=== PATIENT | female | born 1940 | race Hispanic/Latino ===

== ENCOUNTER 2017-08-12 17:49 | Inpatient (IN) | payer MEDICARE, OTHER ==
[2017-08-12] MEDS ORDERED: Albuterol-Ipratrop 3 mg / 0.5 (3 ml) UD IH STA ×2 (18:07→19:58)
--- NOTE | 2017-08-12 18:07 | ED PDOC ---
Arrival/HPI <Dieudonne Delvalle - Last Filed: 08/12/17 20:21> - General Historian: Patient <Ronald Pope - Last Filed: 08/14/17 10:03> - General Chief Complaint: Cough, Cold, Congestion Time Seen by Provider: 08/12/17 18:00 - History of Present Illness Narrative History of Present Illness (Text): 08/12/17 18:01 77 y/o female, pmh including htn and copd, nkda, c/o coughing/chest congestion and copd exacerbation x 2 days. Pt. stated that she has been having chest congestion with productive coughing for the past 2 days, stated that this is causing her copd exacerbation, no fever or chills, no night sweat, no rash, no numbness or tingling, no palpitation, no chest pain or shortness of breath, no other medical or psychological complaints. (Ronald Pope) Past Medical History - Provider Review Nursing Documentation Reviewed: Yes - Infectious Disease Hx of Infectious Diseases: None - Cardiac Hx Cardiac Disorders: Yes Hx Hypertension: Yes - Pulmonary Hx Respiratory Disorders: Yes Hx Chronic Obstructive Pulmonary Disease (COPD): Yes - Neurological Hx Neurological Disorder: No - HEENT Hx HEENT Disorder: No - Renal Hx Renal Disorder: No - Endocrine/Metabolic Hx Endocrine Disorders: No - Hematological/Oncological Hx Blood Disorders: Yes Hx Cancer: Yes (hx of breast cancer) - Integumentary Hx Dermatological Disorder: No - Musculoskeletal/Rheumatological Hx Musculoskeletal Disorders: No - Gastrointestinal Hx Gastrointestinal Disorders: No - Genitourinary/Gynecological Hx Genitourinary Disorders: No - Psychiatric Hx Psychophysiologic Disorder: No Hx Substance Use: No - Surgical History Other/Comment: R masectomy - Anesthesia Hx Anesthesia: Yes Hx Anesthesia Reactions: No <Ronald Pope - Last Filed: 08/14/17 10:03> Family/Social History - Physician Review Nursing Documentation Reviewed: Yes Family/Social History: Unknown Family HX Smoking Status: Heavy Smoker > 10 Cigarettes Daily Hx Alcohol Use: No Hx Substance Use: No <Ronald Pope - Last Filed: 08/14/17 10:03> Allergies/Home Meds <Dieudonne Delvalle - Last Filed: 08/12/17 20:21> <Ronald Pope - Last Filed: 08/14/17 10:03> Allergies/Adverse Reactions: Allergies No Known Allergies Allergy (Verified 08/12/17 17:55) Home Medications: Home Meds Medication Instructions Recorded Confirmed Bisoprolol [Zebeta] 10 mg PO DAILY 08/12/17 08/12/17 Budesonide/Formoterol Fumarate 1 puff IH BID 08/12/17 08/12/17 [Symbicort 160-4.5 Mcg Inhaler] Losartan [Cozaar] 50 mg PO DAILY 08/12/17 08/12/17 Tiotropium Soddy Daisy Inhaler 1 puff IH DAILY 08/12/17 08/12/17 [Spiriva Inhalation Handihaler Device] Review of Systems - Review of Systems Constitutional: absent: Fatigue, Fevers Eyes: absent: Vision Changes ENT: absent: Hearing Changes Respiratory: Cough, Sputum, Wheezing. absent: SOB Cardiovascular: absent: Chest Pain Gastrointestinal: absent: Abdominal Pain, Nausea, Vomiting Musculoskeletal: absent: Arthralgias, Back Pain Skin: absent: Rash, Pruritis Neurological: absent: Headache, Dizziness Psychiatric: absent: Anxiety, Depression <Ronald Pope Q - Last Filed: 08/14/17 10:03> Physical Exam Vital Signs Reviewed: Yes Temperature: Afebrile Blood Pressure: Normal Pulse: Tachycardic Respiratory Rate: Normal Appearance: Positive for: Well-Appearing, Non-Toxic, Comfortable Pain Distress: None Mental Status: Positive for: Alert and Oriented X 3 - Systems Exam Head: Present: Atraumatic, Normocephalic Pupils: Present: PERRL Extroacular Muscles: Present: EOMI Conjunctiva: Present: Normal Ears: Present: NORMAL TM, Normal Canal. No: Erythema Mouth: Present: Moist Mucous Membranes Neck: Present: Normal Range of Motion Respiratory/Chest: Present: Clear to Auscultation, Good Air Exchange. No: Respiratory Distress, Accessory Muscle Use, Wheezes, Decreased Breath Sounds, Rales, Retracting, Rhonchi, Tachypneic, Tender to Palpation Cardiovascular: Present: Regular Rate and Rhythm, Normal S1, S2. No: Murmurs Abdomen: Present: Normal Bowel Sounds. No: Tenderness, Distention, Peritoneal Signs Back: Present: Normal Inspection Upper Extremity: Present: Normal Inspection. No: Cyanosis, Edema Lower Extremity: Present: Normal Inspection. No: Edema Neurological: Present: GCS=15, Speech Normal, Motor Func Grossly Intact, Gait Normal, Memory Normal Skin: Present: Warm, Dry, Normal Color. No: Rashes Psychiatric: Present: Alert, Oriented x 3, Normal Insight, Normal Concentration <Ronald Pope - Last Filed: 08/14/17 10:03> Vital Signs Temp Pulse Resp BP Pulse Ox 08/12/17 21:06 150/62 08/12/17 20:42 103 H 18 150/62 93 L 08/12/17 17:59 99.6 F 106 H 17 127/77 94 L Medical Decision Making <Dieudonne Delvalle - Last Filed: 08/12/17 20:21> - RAD Interpretation Hat Block Bench Hand: Radiologist <Ronald Pope - Last Filed: 08/14/17 10:03> ED Course and Treatment: 08/12/17 18:15 -labs -chest xray -ekg -IVF/duoneb/solumedrol -observe and reassess 08/12/17 20:14 -Chest xray show +pneumonia, blood cultures and IV rocephine/azithromycin ordered. -EKG show Sinus tachycardia @ 101 BPM, no ST elevation or depression, no T wave inversion. -Labs show no acute findings except BNP 1460 with no previous comparison, troponin 0.06 (will need trending aspirin 325mg po ordered), CK 1000 (no fall or trauma, 500cc bolu ordered), BNP 1460 (no pedal edema but since IVF 500cc given will give lasix 20). -VBG lactic acid show 1.5 -Pt. will need admission for COPD/pneumonia and possible early onset of CHF??, clinically also concerning can this be possible developing underlying NSTEMI causing elevated CK and BNP -I discussed with the patient and she agreed to be admitted. Tylenol ordered for her low grade temp as well. -Case discussed with DR. Delvalle and he agreed that this patient needs admission. -I spoke to the patient's pmd Dr. Fountain, discussed about the case/labs/ radiology result and treatment, he agreed on the admission to tele and he will trend the troponin and follow up on it. -I discussed with the patient and the grand daughter on the bed side of my differential including pneumonia vs. CHF vs. NSTEMI vs. dehydration vs. 08/12/17 20:18 -Dr. Adelia will put in the admission order to the telemetry and discussed with the case with him as well. (Ronald Pope) - Lab Interpretations Microbiology Results: Microbiology Results 08/12/17 19:00 Blood-Venous Blood Culture - Preliminary NO GROWTH AFTER 24 HOURS 08/12/17 18:45 Blood-Venous Blood Culture - Preliminary NO GROWTH AFTER 24 HOURS Lab Results: 08/12/17 18:45 08/12/17 18:45 Lab Results 08/12/17 18:45: Serum Osmolality 270 L 08/12/17 18:45: pO2 125 H, VBG pH 7.42, VBG pCO2 38.0 L, VBG HCO3 24.6, VBG Total CO2 25.8, VBG O2 Sat (Calc) 99.5 H, VBG Base Excess 0.3, VBG Potassium 3.5 L, Sodium 129.0 L, Chloride 94.0 L, Glucose 121 H, Lactate 1.5, FiO2 21.0, Venous Blood Potassium 3.5 L 08/12/17 18:45: WBC 6.6, RBC 4.94, Hgb 13.4, Hct 40.8, MCV 82.6, MCH 27.1, MCHC 32.8, RDW 14.2, Plt Count 112 L, MPV 10.7, Gran % 86.4 H, Lymph % (Auto) 7.7 L, [place] % (Auto) 5.9, Eos % (Auto) 0.0 L, Baso % (Auto) 0.0, Gran # 5.74, Lymph # 0.5 L, [place] # 0.4, Eos # 0.0, Baso # 0.00 08/12/17 18:45: Sodium 130 L, Chloride 94 L, Potassium 3.5 L, Carbon Dioxide 24 , Anion Gap 16, BUN 17, Creatinine 0.8, Est GFR ( Amer) > 60, Est GFR ( Non-Af Amer) > 60, Random Glucose 123 H, Calcium 8.8, Magnesium 1.6 L, Total Bilirubin 0.7, AST 61 H, ALT 36, Alkaline Phosphatase 80, Lactate Dehydrogenase 580, Total Creatine Kinase 1064 H, CK-MB (CK-2) 1.8, CK-MB (CK-2) % Cancelled, Troponin I 0.06, NT-Pro-B Natriuret Pep 1460 H, Total Protein 7.3, Albumin 4.2, Globulin 3.2, Albumin/Globulin Ratio 1.3 08/12/17 18:00: Influenza Typ A,B (EIA) Negative for flu a/b - RAD Interpretation Radiology Orders: 08/12/17 18:11 CHEST PORTABLE [RAD] Stat 08/12/17 18:11 CHEST PORTABLE [RAD] Stat bibasiliar infiltrate noted. (Ronald Pope) - Medication Orders Current Medication Orders: Acetaminophen (Tylenol 325mg Tab) 650 mg PO Q4 PRN PRN Reason: Fever >100.4 F Albuterol/Ipratropium (Duoneb 3 Mg/0.5 Mg (3 Ml) Ud) 3 ml IH Q6 [facility] Last Admin: 08/14/17 08:32 Dose: 3 ml Aspirin (Ecotrin) 81 mg PO DAILY [facility] Last Admin: 08/13/17 10:30 Dose: 81 mg Budesonide (Pulmicort Respules) 0.5 mg IH [id number] [facility] Carvedilol (Coreg) 3.125 mg PO BID [facility] Last Admin: 08/13/17 18:36 Dose: 3.125 mg [facility] Pulse and Blood Pressure Document 08/13/17 18:36 MANIL (Rec: 08/13/17 18:36 MANIL [id number]) Pulse Pulse Rate (60-90) 74 Blood Pressure Blood Pressure (100/60-150/90) 135/72 Ceftriaxone Sodium (Rocephin 1 Gram Ivpb) 1 gm in 100 mls @ 100 mls/hr IVPB DAILY [facility] PRN Reason: Protocol Last Admin: 08/13/17 10:31 Dose: 100 mls/hr eMAR Start Stop Document 08/13/17 10:31 MANIL (Rec: 08/13/17 10:31 MANIL [id number]) Intravenous Solution Start Date 08/13/17 Start Time 10:31 End Date 08/13/17 End time 11:31 Total Infusion Time 60 Azithromycin (Zithromax 500mg In Ns) 500 mg in 250 mls @ 167 mls/hr IVPB DAILY [facility] PRN Reason: Protocol Last Admin: 08/13/17 11:00 Dose: 167 mls/hr eMAR Start Stop Document 08/13/17 11:00 MANIL (Rec: 08/13/17 17:26 MANIL [id number] ) Intravenous Solution Start Date 08/13/17 Start Time 11:00 End Date 08/13/17 End time 12:30 Total Infusion Time 90 Sodium Chloride (Sodium Chloride 0.9%) 1,000 mls @ 75 mls/hr IV .[id number] [facility] Losartan Potassium (Cozaar) 50 mg PO DAILY [facility] Last Admin: 08/13/17 10:30 Dose: 50 mg MAR Pulse and Blood Pressure Document 08/13/17 10:30 MANIL (Rec: 08/13/17 10:31 MANIL [id number]) Pulse Pulse Rate (60-90) 73 Blood Pressure Blood Pressure (100/60-150/90) 122/65 Methylprednisolone (Solu-Medrol) 40 mg IVP Q12 [facility] Last Admin: 08/13/17 22:12 Dose: 40 mg IVP Administration Document 08/13/17 22:12 KTR (Rec: 08/13/17 22:12 KTR [id number]) Charges for Administration # of IVP Administrations 1 Tiotropium Soddy Daisy (Spiriva) 18 mcg IH DAILY [facility] Last Admin: 08/13/17 10:32 Dose: 18 mcg Discontinued Medications Acetaminophen (Tylenol 325mg Tab) 650 mg PO STAT STA Stop: 08/12/17 20:14 Last Admin: 08/12/17 21:06 Dose: 650 mg MAR Pain/Vitals Document 08/12/17 21:06 EQ (Rec: 08/12/17 21:06 EQ [facility] [id number]) Pain Reassessment Is This A Pain ReAssessment? No Sleep Is patient sleeping during reassessment? No Presence of Pain Presence of Pain Yes Albuterol/Ipratropium (Duoneb 3 Mg/0.5 Mg (3 Ml) Ud) 3 ml IH STAT STA Stop: 08/12/17 18:08 Last Admin: 08/12/17 19:09 Dose: 3 ml Albuterol/Ipratropium (Duoneb 3 Mg/0.5 Mg (3 Ml) Ud) 3 ml IH STAT STA Stop: 08/12/17 19:59 Last Admin: 08/12/17 21:06 Dose: 3 ml Aspirin (Aspirin) 325 mg PO STAT STA Stop: 08/12/17 20:12 Last Admin: 08/12/17 21:07 Dose: 325 mg Clonidine HCl (Catapres) 0.1 mg PO STAT STA Stop: 08/14/17 00:16 Last Admin: 08/14/17 00:40 Dose: 0.1 mg MAR Pulse and Blood Pressure Document 08/14/17 00:40 KTR (Rec: 08/14/17 00:40 KTR [id number]) Pulse Pulse Rate (60-90) 76 Blood Pressure Blood Pressure (100/60-150/90) 176/80 Furosemide (Lasix) 20 mg IVP STAT STA Stop: 08/12/17 20:03 Last Admin: 08/12/17 21:06 Dose: 20 mg MAR Blood Pressure Document 08/12/17 21:06 EQ (Rec: 08/12/17 21:06 EQ [facility] [id number]) Blood Pressure Blood Pressure (100/60-150/90) 150/62 IVP Administration Document 08/12/17 21:06 EQ (Rec: 08/12/17 21:06 EQ [facility] [id number]) Charges for Administration # of IVP Administrations 1 Ceftriaxone Sodium (Rocephin 1 Gram Ivpb) 1 gm in 100 mls @ 200 mls/hr IVPB STAT STA PRN Reason: Protocol Stop: 08/12/17 19:03 Last Admin: 08/12/17 19:40 Dose: 200 mls/hr eMAR Start Stop Document 08/12/17 19:40 EQ (Rec: 08/12/17 19:41 EQ [facility] [id number]) Intravenous Solution Start Date 08/12/17 Start Time 19:41 Azithromycin (Zithromax 500mg In Ns) 500 mg in 250 mls @ 167 mls/hr IVPB STAT STA PRN Reason: Protocol Stop: 08/12/17 20:03 Last Admin: 08/12/17 20:32 Dose: 167 mls/hr eMAR Start Stop Document 08/12/17 20:32 EQ (Rec: 08/12/17 20:32 EQ [facility] [id number]) Intravenous Solution Start Date 08/12/17 Start Time 20:32 Magnesium Sulfate/Dextrose (Magnesium Sulfate 1 Gm/100 Ml D5w) 1 gm in 100 mls @ 100 mls/hr IVPB ONCE ONE Stop: 08/12/17 21:00 Last Admin: 08/12/17 21:06 Dose: 100 mls/hr eMAR Start Stop Document 08/12/17 21:06 EQ (Rec: 08/12/17 21:06 EQ [facility] [id number]) Intravenous Solution Start Date 08/12/17 Start Time 21:06 Sodium Chloride (Sodium Chloride 0.9%) 500 mls @ 999 mls/hr IV .Q31M STA Stop: 08/12/17 20:31 Last Admin: 08/12/17 21:06 Dose: 999 mls/hr eMAR Start Stop Document 08/12/17 21:06 EQ (Rec: 08/12/17 21:06 EQ [facility] [id number]) Intravenous Solution Start Date 08/12/17 Start Time 21:06 Sodium Chloride (Sodium Chloride 0.9%) 1,000 mls @ 100 mls/hr IV .Q10H [facility] Last Admin: 08/13/17 08:09 Dose: Methylprednisolone (Solu-Medrol) 125 mg IVP STAT STA Stop: 08/12/17 18:08 Last Admin: 08/12/17 19:09 Dose: 125 mg IVP Administration Document 08/12/17 19:09 EQ (Rec: 08/12/17 19:09 EQ [facility] [id number]) Charges for Administration # of IVP Administrations 1 Potassium Chloride (K-Dur 20 Meq Er Tab) 40 meq PO ONCE ONE Stop: 08/13/17 08:31 Last Admin: 08/13/17 09:30 Dose: 40 meq Potassium Chloride (K-Dur 20 Meq Er Tab) 20 meq PO ONCE ONE Stop: 08/13/17 16:57 Last Admin: 08/13/17 17:25 Dose: 20 meq - PA / ADVISORY SERVICES ASSOCIATE / Resident Statement VIRGILIO has reviewed & agrees with the documentation as recorded. VIRGILIO has examined the patient and agrees with the treatment plan. <Dieudonne Delvalle - Last Filed: 08/12/17 20:21> - PA / ADVISORY SERVICES ASSOCIATE / Resident Statement VIRGILIO has reviewed & agrees with the documentation as recorded. VIRGILIO has examined the patient and agrees with the treatment plan. <Ronald Pope - Last Filed: 08/14/17 10:03> Disposition/Present on Arrival <Dieudonne Delvalle - Last Filed: 08/12/17 20:21> - Present on Arrival Any Indicators Present on Arrival: No History of DVT/PE: No History of Uncontrolled Diabetes: No Urinary Catheter: No History of Decub. Ulcer: No History Surgical Site Infection Following: None - Disposition Have Diagnosis and Disposition been Completed?: Yes Disposition Time: 19:59 Patient Plan: Admission, Telemetry <Ronald Pope - Last Filed: 08/14/17 10:03> - Disposition Diagnosis: Pneumonia, COPD (chronic obstructive pulmonary disease), Elevated brain natriuretic peptide (BNP) level, Rhabdomyolysis Disposition: HOSPITALIZED Patient Problems: Current Active Problems Problem Status Onset Pneumonia Acute COPD (chronic obstructive pulmonary disease) Acute Elevated brain natriuretic peptide (BNP) level Acute Rhabdomyolysis Acute Condition: STABLE
[2017-08-12] MEDS ORDERED: cefTRIAXone 1 gm 1 GM/100 ML BAG IVPB STA (18:34)
[2017-08-12] MEDS ORDERED: Azithromycin 500MG/NS 250ml 500 MG/250 ML BAG IVPB STA (18:34)
[2017-08-12 19:19] LABS: GRAN # 5.74 (1.4-6.5); GRAN % 86.4 % (50.0-68.0); HEMOGLOBIN 13.4 g/dL (12.0-16.0); LYMPH # 0.5 (1.2-3.4); LYMPH % 7.7 % (22.0-35.0); MEAN CELL VOLUME 82.6 fl (80.0-105.0); MEAN CORPUSCULAR HEMOGLOBIN 27.1 pg (25.0-35.0); MEAN CORPUSCULAR HGB CONC 32.8 g/dl (31.0-37.0); MEAN PLATELET VOLUME 10.7 fl (7.0-11.0); MONO # 0.4 (0.1-0.6); MONO % 5.9 % (1.0-6.0); RBC 4.94 10^6/uL (3.5-6.1); RED CELL DISTRIBUTION WIDTH 14.2 % (11.5-14.5); WHITE BLOOD COUNT 6.6 10^3/ul (4.5-11.0)
[2017-08-12 19:23] LABS: VENOUS BLOOD GAS BASE EXCESS 0.3 mmol/L (0.0-2.0); VENOUS BLOOD GAS PO2 125 mm/Hg (30-55); VENOUS BLOOD PH 7.42 (7.32-7.43)
[2017-08-12 19:39] LABS: B-TYPE NATRIURETIC PEPTIDE 1460 pg/mL (0-450); TROPONIN I 0.06 ng/mL
[2017-08-12 19:53] LABS: ALB/GLOB RATIO 1.3 (1.1-1.8); ALBUMIN 4.2 g/dL (3.0-4.8); ALT/SGPT 36 U/L (7-56); AST/SGOT 61 U/L (14-36); BLOOD UREA NITROGEN 17 mg/dL (7-21); CALCIUM 8.8 mg/dL (8.4-10.5); GFR AFRICAN-AMERICAN > 60; GFR NON-AFRICAN AMERICAN > 60; MAGNESIUM 1.6 mg/dL (1.7-2.2)
[2017-08-12] MEDS ORDERED: Sodium Chloride 0.9% 500 ML IV STA (20:01)
[2017-08-12] MEDS ORDERED: Magnesium Sulfate 1 gm in D5W 1 GM/100 ML BAG IVPB ONE (20:01)
[2017-08-12 20:15] LABS: CK-MB 1.8 ng/mL (0.0-3.6)
[2017-08-13 02:26] VITALS: BMI 24.1
[2017-08-13 08:06] LABS: BASO # 0.01 K/mm3 (0.0-2.0); BASO % 0.2 % (0.0-3.0); GRAN # 4.67 (1.4-6.5); HEMOGLOBIN 13.1 g/dL (12.0-16.0); LYMPH # 0.4 (1.2-3.4); LYMPH % 7.8 % (22.0-35.0); MEAN CELL VOLUME 82.8 fl (80.0-105.0); MEAN CORPUSCULAR HEMOGLOBIN 26.8 pg (25.0-35.0); MEAN CORPUSCULAR HGB CONC 32.4 g/dl (31.0-37.0); MEAN PLATELET VOLUME 10.8 fl (7.0-11.0); MONO # 0.2 (0.1-0.6); RBC 4.88 10^6/uL (3.5-6.1); RED CELL DISTRIBUTION WIDTH 14.6 % (11.5-14.5); WHITE BLOOD COUNT 5.3 10^3/ul (4.5-11.0)
[2017-08-13] MEDS: Sodium Chloride 0.9% 1,000 ML IV SCH ×2 (08:08→08:09)
[2017-08-13 08:13] LABS: ALB/GLOB RATIO 1.2 (1.1-1.8); ALBUMIN 3.7 g/dL (3.0-4.8); ALT/SGPT 35 U/L (7-56); AST/SGOT 62 U/L (14-36); BLOOD UREA NITROGEN 22 mg/dL (7-21); CALCIUM 8.1 mg/dL (8.4-10.5); GFR AFRICAN-AMERICAN > 60; GFR NON-AFRICAN AMERICAN > 60
[2017-08-13] MEDS: Albuterol-Ipratrop 3 mg / 0.5 (3 ml) UD IH SCH ×3 (08:17→20:57)
--- NOTE | 2017-08-13 08:20 | RAD ---
HISTORY: medical clearance, cough COMPARISON: 12/17/2016 FINDINGS: LUNGS: Minimal bibasilar infiltrates are seen. The left-sided infiltrate was seen on the previous exam and may represent scarring PLEURA: No significant pleural effusion identified, no pneumothorax apparent. CARDIOVASCULAR: Normal. OSSEOUS STRUCTURES: No significant abnormalities. VISUALIZED UPPER ABDOMEN: Normal. OTHER FINDINGS: None. IMPRESSION: Minimal bibasilar infiltrates are seen. The left-sided infiltrate was seen on the previous exam and may represent scarring
[2017-08-13 08:23] LABS: FREE T4 1.26 ng/dL (0.78-2.19)
[2017-08-13 08:27] LABS: CK MB% 0.5 % (2.5-3.0)
[2017-08-13] MEDS ORDERED: Potassium Chloride 20 mEq ER Tab PO ONE ×2 (08:30→16:56)
[2017-08-13 08:39] LABS: TROPONIN I 0.13 ng/mL
--- NOTE | 2017-08-13 08:46 | CP.PCM.HP ---
History of Present Illness - History of Present Illness History of Present Illness: 77 year old female with history of hypertension, chronic obstructive pulmonary disease and breast cancer with history of right mastectomy presented last night to the Emergency Room with low grade fever, tachycardia and shortness of breath. Patient says she has been feeling weak and tired for the last 2 days. She has also been coughing for the last 2 days. She denies nausea, vomiting chest pain or diarrhea. Present on Admission - Present on Admission Any Indicators Present on Admission: No History of DVT/PE: No History of Uncontrolled Diabetes: No Urinary Catheter: No Decubitus Ulcer Present: No Review of Systems - Constitutional Constitutional: As Per HPI - Cardiovascular Cardiovascular: Dyspnea. absent: Chest Pain, Leg Edema - Respiratory Respiratory: As Per HPI - Gastrointestinal Gastrointestinal: absent: Abdominal Pain, Nausea, Vomiting Past Patient History - Infectious Disease Hx of Infectious Diseases: None - Past Social History Smoking Status: Never Smoked - CARDIAC Hx Cardiac Disorders: Yes Hx Hypertension: Yes - PULMONARY Hx Respiratory Disorders: Yes Hx Chronic Obstructive Pulmonary Disease (COPD): Yes - NEUROLOGICAL Hx Neurological Disorder: No - HEENT Hx HEENT Problems: No - RENAL Hx Chronic Kidney Disease: No - ENDOCRINE/METABOLIC Hx Endocrine Disorders: No - HEMATOLOGICAL/ONCOLOGICAL Hx Blood Disorders: Yes Hx Cancer: Yes (hx of breast cancer) - INTEGUMENTARY Hx Dermatological Problems: No - MUSCULOSKELETAL/RHEUMATOLOGICAL Hx Musculoskeletal Disorders: No Hx Falls: No - GASTROINTESTINAL Hx Gastrointestinal Disorders: No - GENITOURINARY/GYNECOLOGICAL Hx Genitourinary Disorders: No - PSYCHIATRIC Hx Psychophysiologic Disorder: No Hx Substance Use: No - SURGICAL HISTORY Hx Surgeries: Yes Other/Comment: R masectomy - ANESTHESIA Hx Anesthesia: Yes Hx Anesthesia Reactions: No Meds Allergies/Adverse Reactions: Allergies Allergy/AdvReac Type Severity Reaction Status Date / Time No Known Allergies Allergy Verified 08/12/17 17:55 Physical Exam - Head Exam Head Exam: ATRAUMATIC, NORMOCEPHALIC - Respiratory Exam Respiratory Exam: Rhonchi - Cardiovascular Exam Cardiovascular Exam: +S1, +S2 - GI/Abdominal Exam GI & Abdominal Exam: Normal Bowel Sounds, Soft. absent: Tenderness - Extremities Exam Extremities exam: Negative for: pedal edema - Neurological Exam Neurological exam: Alert, CN II-XII Intact, Oriented x3 Results - Vital Signs Recent Vital Signs: Last Vital Signs Temp 98.7 F 08/13/17 01:33 Pulse 78 01/14/18 02:00 Resp 20 08/13/17 01:33 BP 123/75 08/13/17 01:33 Pulse Ox 96 08/13/17 00:00 - Labs Result Diagrams: 08/14/17 06:30 08/15/17 06:30 Labs: Laboratory Results - last 24 hr 08/13/17 08/13/17 08/13/17 07:30 07:30 07:30 WBC 5.3 RBC 4.88 Hgb 13.1 Hct 40.4 MCV 82.8 MCH 26.8 MCHC 32.4 RDW 14.6 H Plt Count 94 L MPV 10.8 Gran % 89.0 H Lymph % (Auto) 7.8 L [place] % (Auto) 3.0 Eos % (Auto) 0.0 L Baso % (Auto) 0.2 Gran # 4.67 Lymph # 0.4 L [place] # 0.2 Eos # 0.0 Baso # 0.01 Sodium 137 Potassium 3.2 L Chloride 102 Carbon Dioxide 24 Anion Gap 15 BUN 22 H Creatinine 0.7 Est GFR ( Amer) > 60 Est GFR (Non-Af Amer) > 60 Random Glucose 157 H Calcium 8.1 L Magnesium 2.0 Total Bilirubin 0.5 AST 62 H ALT 35 Alkaline Phosphatase 67 Lactate Dehydrogenase 601 Total Creatine Kinase 1061 H CK-MB (CK-2) 5.0 H CK-MB (CK-2) % 0.5 L Troponin I 0.14 H* D Total Protein 6.8 Albumin 3.7 Globulin 3.1 Albumin/Globulin Ratio 1.2 Free T4 1.26 Assessment & Plan - Assessment and Plan (Free Text) Assessment: Pneumonia Hyponatremia Hypokalemia Hypomagnesemia Elevated CPK - rhabdomyolysis Elevated troponin r/o NSTEMI COPD exacerbation HTN History of breast cancer Plan: Patient is on IV Rocephin and Zithromax for pneumonia. Will consult Dr. Putnam for infectious disease. Blood, urine and sputum cultures pending. Repeat CPK continues to be elevated and repeat troponin is trending upward. Will consult Dr. Cruz, tank house operator helper to rule out NSTEMI. continue IV fluids for rhabdomyolysis continue ASA, and Losartan for blood pressure. Bisoprolol is not on formulary. Will start Coreg instead. continue respiratory treatments via nebulizer, IV solumedrol and oxygen for COPD. repeat sodium is now normalized with IV fluids. Repeat magnesium is also normal. Potassium supplementation is ordered for low potassium.
[2017-08-13] MEDS: cefTRIAXone 1 gm 1 GM/100 ML BAG IVPB SCH (10:31)
[2017-08-13] MEDS: MethylPREDNISolone 40 mg Vial IVP SCH ×2 (10:32→22:12)
[2017-08-13] MEDS: Tiotropium 18 mcg Cap For Inhalation IH SCH (10:32)
[2017-08-13] MEDS: Azithromycin 500MG/NS 250ml 500 MG/250 ML BAG IVPB SCH (11:00)
--- NOTE | 2017-08-13 20:44 | CARD ---
APPROVED REPORT EKG Measurement Heart [id number] <Conclusion> Normal sinus rhythm Normal ECG
--- NOTE | 2017-08-13 20:50 | CARD ---
APPROVED REPORT EKG Measurement Heart [id number] <Conclusion> Sinus tachycardia Possible Left atrial enlargement Borderline ECG
--- NOTE | 2017-08-13 21:40 | CON ---
DATE: 08/13/2017 The patient is seen in room 377, bed 2. CHIEF COMPLAINT: Shortness of breath and cough x several days. HISTORY OF PRESENT ILLNESS: This is a 77-year-old female with a history of hypertension, chronic obstructive lung disease, breast cancer, history of right mastectomy, he has no known allergies, who is admitted with worsening of shortness of breath, diagnosed with congestive heart failure. Infectious disease consultation requested. REVIEW OF SYSTEMS: Reveals the patient has no fevers, although she states she had low grade fevers at home. There is cough which is productive of whitish sputum, pleuritic chest pain. No abdominal pain, diarrhea, or constipation. No bright red blood per rectum. No melena. No dysuria or frequency. PAST MEDICAL HISTORY: Significant for hypertension, chronic obstructive lung disease, and breast cancer. PAST SURGICAL HISTORY: Significant for right mastectomy. ALLERGIES: THE PATIENT HAS NO KNOWN ALLERGIES. MEDICATIONS AT HOME: Include the patient to be on an inhaler, Zebeta, and Cozaar. SOCIAL HISTORY: Significant for smoking, continues to be a smoker. PHYSICAL EXAMINATION: GENERAL: The patient is in bed. VITAL SIGNS: The patient's temperature is 99.6, heart rate was up to 106, respiratory rate of 20, and blood pressure is 120/70. HEENT: Examination of HEENT is unremarkable. NECK: Supple. LUNGS: Decreased breath sounds. HEART: Normal S1, S2. ABDOMEN: Soft, nontender. No rebound or guarding. LABORATORY EXAMINATION: Reveals a white count of 5.3, hemoglobin of 13, platelets of 94. Chemistries reveal a BUN of 17, creatinine of 0.8. BNP is 1460. CPK is over 1000. Influenza is negative. The patient had a chest x-ray which shows positive infiltrates and a left-sided infiltrate is seen and minimal bibasilar infiltrates are seen. ASSESSMENT/PLAN: A 77-year-old female with hypertension, chronic obstructive lung disease, breast cancer. 1. Exacerbation of chronic obstructive lung disease with community-acquired pneumonia, must rule out bacterial, must also rule out underlying congestive heart failure. We will treat the patient with ceftriaxone and azithromycin. Order a procalcitonin, blood culture, urine culture, and order an echo to reevaluate the ejection fraction. We will follow closely with you. We will check on the urinalysis. Nikita Putnam MD [facility] # [id number]
[2017-08-14] MEDS: Albuterol-Ipratrop 3 mg / 0.5 (3 ml) UD IH SCH ×4 (01:21→21:29)
--- NOTE | 2017-08-14 02:05 | CON ---
DATE: 08/13/2017 LOCATION: The patient is in room 377, bed 2. REASON FOR CONSULTATION: Shortness of breath and hypertension. HISTORY OF PRESENT ILLNESS: The patient is a 77-year-old female, known case of COPD, hypertension, status post right mastectomy, admitted with a history that few days back she started having cold like symptoms and later on she developed cough with associated shortness of breath. Last two days, she was feeling very fatigued and shortness of breath with cough increased. The patient initially had expectoration. She is not sure of the color of the expectoration but now she states she does not have expectoration but she has dry cough and she feels very tired and fatigued and shortness of breath. Denies palpitations. PAST MEDICAL HISTORY: Positive for COPD, hypertension and right mastectomy for malignancy. PERSONAL HISTORY: Denies smoking. Denies drinking. ALLERGIES: THE PATIENT DENIES ANY ALLERGIES. HOME MEDICATIONS: Included bisoprolol 10 mg daily, Symbicort inhaler, losartan which is Cozaar 50 mg daily and Spiriva inhalation. REVIEW OF SYSTEMS: All other systems reviewed, positive mentioned in the HPI, others were negative. PHYSICAL EXAMINATION: VITAL SIGNS: Blood pressure 122/65, respirations 20, pulse 73 and temperature 98.7. HEENT: Head is normocephalic. Eyes; pupils normal. Conjunctivae normal. Nose and throat normal. NECK: JVP low. Carotids equal. THORAX: AP diameter normal. LUNGS: The patient has few fine rales and some expiratory wheezing. CARDIOVASCULAR: S1 and S2. ABDOMEN: Soft. No tenderness. No organomegaly. EXTREMITIES: No edema. No clubbing. No cyanosis. LABORATORY DATA: Shows WBC 5.3, hemoglobin 13.1, hematocrit 40.4 and platelet count 94. Sodium 137, potassium 3.2, BUN 22 and creatinine 0.7. First troponin 0.06 and second troponin 0.13. TSH 0.20, free T4 is 1.26. Chest x-ray showed bibasilar infiltrates, left side infiltrate is the same as seen on the previous x-ray. EKG showed regular sinus rhythm. DIAGNOSES: Pneumonia, exacerbation of chronic obstructive pulmonary disease, hypertension, slight troponin elevation, rule out [id number] myocardial infarction and hypokalemia. PLAN: The patient is on carvedilol 3.125 b.i.d., losartan 50 daily and aspirin 81 mg daily. The patient received 40 mEq of potassium today. We will give another potassium of 20 mEq today and repeat labs in the morning. The patient is on Solu-Medrol 40 mg IV q. 12 hours, Spiriva 18 mcg IH daily, azithromycin 500 mg IV daily and Rocephin 1 g IV daily. We will repeat troponin in the morning. We will also add Plavix and Protonix to the therapy. We will do an echocardiogram. Clinically, the patient is not having any anginal symptoms at present. We will follow with you closely. We will also check lipid panel. Clinically, no evidence of CHF at present; although, NT-pro-B natriuretic peptide is 1460. We will closely follow with you. Elie Madison MD
--- NOTE | 2017-08-14 06:48 | CP.PCM.PN ---
Subjective - Date & Time of Evaluation Date of Evaluation: 08/14/17 Time of Evaluation: 06:47 - Subjective Subjective: Patient seen because her BP was elevated.(176/80),pulse ox 95% on RA. Has no complaints. Denies headache, dizziness, weakness, paraesthesia, chest pain,sob. Medical record was reviewed. This 77 year old woman was admitted with dyspnea, low grade fever, tachycardia. Has PMH of COPD HTN, , breast cancer , right mastectomy. Objective - Vital Signs/Intake and Output Vital Signs (last 24 hours): Temp Pulse Resp BP Pulse Ox 98.3 F 64 18 147/79 95 08/14/17 06:00 08/14/17 06:00 08/14/17 06:00 08/14/17 06:00 08/14/17 06:00 Intake and Output: 08/13/17 08/14/17 18:59 06:59 Intake Total 600 660 Balance 600 660 - Medications Medications: Current Medications Acetaminophen (Tylenol 325mg Tab) 650 mg PO Q4 PRN PRN Reason: Fever >100.4 F Albuterol/Ipratropium (Duoneb 3 Mg/0.5 Mg (3 Ml) Ud) 3 ml IH Q6 [facility] Last Admin: 08/14/17 01:21 Dose: Not Given Aspirin (Ecotrin) 81 mg PO DAILY [facility] Last Admin: 08/13/17 10:30 Dose: 81 mg Carvedilol (Coreg) 3.125 mg PO BID [facility] Last Admin: 08/13/17 18:36 Dose: 3.125 mg Sodium Chloride (Sodium Chloride 0.9%) 1,000 mls @ 100 mls/hr IV .Q10H [facility] Last Admin: 08/13/17 08:09 Dose: Not Given Ceftriaxone Sodium (Rocephin 1 Gram Ivpb) 1 gm in 100 mls @ 100 mls/hr IVPB DAILY [facility] PRN Reason: Protocol Last Admin: 08/13/17 10:31 Dose: 100 mls/hr Azithromycin (Zithromax 500mg In Ns) 500 mg in 250 mls @ 167 mls/hr IVPB DAILY [facility] PRN Reason: Protocol Last Admin: 08/13/17 11:00 Dose: 167 mls/hr Losartan Potassium (Cozaar) 50 mg PO DAILY [facility] Last Admin: 08/13/17 10:30 Dose: 50 mg Methylprednisolone (Solu-Medrol) 40 mg IVP Q12 [facility] Last Admin: 08/13/17 22:12 Dose: 40 mg Potassium Chloride (K-Dur 20 Meq Er Tab) 20 meq PO BRK [facility] Tiotropium [place] (Spiriva) 18 mcg IH DAILY [facility] Last Admin: 08/13/17 10:32 Dose: 18 mcg - Labs Labs: 08/13/17 07:30 08/13/17 07:30 Micro Results 08/12/17 19:00 Blood-Venous Blood Culture - Preliminary NO GROWTH AFTER 48 HOURS 08/12/17 18:45 Blood-Venous Blood Culture - Preliminary NO GROWTH AFTER 48 HOURS Most Recent Lab Values WBC 10.3 10^3/ul (4.5-11.0) D 08/14/17 06:30 RBC 4.55 10^6/uL (3.5-6.1) 08/14/17 06:30 Hgb 12.1 g/dL (12.0-16.0) 08/14/17 06:30 Hct 38.7 % (36.0-48.0) 08/14/17 06:30 MCV 85.1 fl (80.0-105.0) 08/14/17 06:30 MCH 26.6 pg (25.0-35.0) 08/14/17 06:30 MCHC 31.3 g/dl (31.0-37.0) 08/14/17 06:30 RDW 14.8 % (11.5-14.5) H 08/14/17 06:30 Plt Count 100 10^3/uL (120.0-450.0) L 08/14/17 06:30 MPV 12.1 fl (7.0-11.0) H 08/14/17 06:30 Gran % 91.6 % (50.0-68.0) H 08/14/17 06:30 Lymph % (Auto) 5.3 % (22.0-35.0) L 08/14/17 06:30 [place] % (Auto) 2.9 % (1.0-6.0) 08/14/17 06:30 Eos % (Auto) 0.1 % (1.5-5.0) L 08/14/17 06:30 Baso % (Auto) 0.1 % (0.0-3.0) 08/14/17 06:30 Gran # 9.42 (1.4-6.5) H 08/14/17 06:30 Lymph # 0.6 (1.2-3.4) L 08/14/17 06:30 [place] # 0.3 (0.1-0.6) 08/14/17 06:30 Eos # 0.0 (0.0-0.7) 08/14/17 06:30 Baso # 0.01 K/mm3 (0.0-2.0) 08/14/17 06:30 Neutrophils % (Manual) 94 % (50.0-70.0) H 08/14/17 06:30 Band Neutrophils % 1 % (0-2) 08/14/17 06:30 Lymphocytes % (Manual) 3 % (22.0-35.0) L 08/14/17 06:30 Monocytes % (Manual) 2 % (1.0-6.0) 08/14/17 06:30 Platelet Evaluation Low (NORMAL) 08/14/17 06:30 pO2 125 mm/Hg (30-55) H 08/12/17 18:45 VBG pH 7.42 (7.32-7.43) 08/12/17 18:45 VBG pCO2 38.0 (40-60) L 08/12/17 18:45 VBG HCO3 24.6 mmol/l (21-28) 08/12/17 18:45 VBG Total CO2 25.8 mmol.L (22-28) 08/12/17 18:45 VBG O2 Sat (Calc) 99.5 % (40-65) H 08/12/17 18:45 VBG Base Excess 0.3 mmol/L (0.0-2.0) 08/12/17 18:45 VBG Potassium 3.5 mmol/L (3.6-5.2) L 08/12/17 18:45 Sodium 129.0 mmol/L (132-148) L 08/12/17 18:45 Chloride 94.0 mmol/L (98-107) L 08/12/17 18:45 Glucose 121 mg/dl (65-105) H 08/12/17 18:45 Lactate 1.5 mmol/L (0.7-2.1) 08/12/17 18:45 FiO2 21.0 % 08/12/17 18:45 Sodium 140 mmol/L (132-148) 08/14/17 06:30 Potassium 5.0 mmol/L (3.6-5.0) 08/14/17 06:30 Chloride 108 mmol/L (98-107) H 08/14/17 06:30 Carbon Dioxide 25 mmol/L (21-33) 08/14/17 06:30 Anion Gap 12 (10-20) 08/14/17 06:30 BUN 23 mg/dL (7-21) H 08/14/17 06:30 Creatinine 0.6 mg/dl (0.7-1.2) L 08/14/17 06:30 Est GFR ( Amer) > 60 08/14/17 06:30 Est GFR (Non-Af Amer) > 60 08/14/17 06:30 Random Glucose 126 mg/dL (70-110) H 08/14/17 06:30 Serum Osmolality 270 mosm/kg (272-300) L 08/12/17 18:45 Calcium 8.3 mg/dL (8.4-10.5) L 08/14/17 06:30 Magnesium 2.0 mg/dL (1.7-2.2) 08/13/17 07:30 Total Bilirubin 0.5 mg/dL (0.2-1.3) 08/13/17 07:30 AST 62 U/L (14-36) H 08/13/17 07:30 ALT 35 U/L (7-56) 08/13/17 07:30 Alkaline Phosphatase 67 U/L (38-126) 08/13/17 07:30 Lactate Dehydrogenase 601 U/L (333-699) 08/13/17 07:30 Total Creatine Kinase 1053 U/L (35-230) H 08/14/17 08:45 CK-MB (CK-2) 11.7 ng/mL (0.0-3.6) H 08/14/17 08:45 CK-MB (CK-2) % 1.1 % (2.5-3.0) L 08/14/17 08:45 Troponin I 0.10 ng/mL D 08/14/17 06:30 NT-Pro-B Natriuret Pep 1460 pg/mL (0-450) H 08/12/17 18:45 Total Protein 6.8 g/dL (5.8-8.3) 08/13/17 07:30 Albumin 3.7 g/dL (3.0-4.8) 08/13/17 07:30 Globulin 3.1 gm/dL 08/13/17 07:30 Albumin/Globulin Ratio 1.2 (1.1-1.8) 08/13/17 07:30 Triglycerides 102 mg/dL (35-160) 08/14/17 06:30 Cholesterol 186 mg/dL (130-200) 08/14/17 06:30 LDL Cholesterol Direct 110 mg/dL (0-129) 08/14/17 06:30 HDL Cholesterol 40 mg/dL (29-60) 08/14/17 06:30 Procalcitonin 2.84 NG/ML (0.19-0.49) H 08/13/17 11:20 Free T4 1.26 ng/dL (0.78-2.19) 08/13/17 07:30 TSH 3rd Generation 0.20 mIU/mL (0.46-4.68) L 08/13/17 07:30 Venous Blood Potassium 3.5 mmol/L (3.6-5.2) L 08/12/17 18:45 Urine Color Yellow (YELLOW) 08/14/17 08:34 Urine Appearance Clear (CLEAR) 08/14/17 08:34 Urine pH 6.0 (4.7-8.0) 08/14/17 08:34 Ur Specific [place] 1.020 (1.005-1.035) 08/14/17 08:34 Urine Protein Trace mg/dL (<30 mg/dL) H 08/14/17 08:34 Urine Glucose (UA) Negative mg/dL (NEGATIVE) 08/14/17 08:34 Urine Ketones Negative mg/dL (NEGATIVE) 08/14/17 08:34 Urine Blood Trace-intact (NEGATIVE) H 08/14/17 08:34 Urine Nitrate Negative (NEGATIVE) 08/14/17 08:34 Urine Bilirubin Negative (NEGATIVE) 08/14/17 08:34 Urine Urobilinogen 0.2 E.U./dL (<1 E.U./dL) 08/14/17 08:34 Ur Leukocyte Esterase Negative [place]/uL (NEGATIVE) 08/14/17 08:34 Urine RBC 0 - 2 /hpf (0-2) 08/14/17 08:34 Urine WBC 0 - 2 /hpf (0-6) 08/14/17 08:34 Ur Epithelial Cells 0 - 2 /hpf (0-5) 08/14/17 08:34 Urine Bacteria Small (NEG) 08/14/17 08:34 Urine Osmolality 717 mosm/kg (300-1000) 08/14/17 08:32 Ur Random Sodium 67 meq/L 08/14/17 08:31 Influenza Typ A,B (EIA) Negative for flu a/b (NEGATIVE) 08/12/17 18:00 - Constitutional Appears: Well, No Acute Distress - Head Exam Head Exam: ATRAUMATIC, NORMAL INSPECTION, NORMOCEPHALIC - Eye Exam Eye Exam: Normal appearance - ENT Exam ENT Exam: absent: Normal External Ear Exam - Neck Exam Neck Exam: Normal Inspection - Respiratory Exam Respiratory Exam: NORMAL BREATHING PATTERN - Cardiovascular Exam Cardiovascular Exam: absent: JVD - GI/Abdominal Exam GI & Abdominal Exam: absent: Distended - Rectal Exam Rectal Exam: Deferred - Exam Additional comments: Deferred. - Extremities Exam Extremities Exam: Normal Inspection - Back Exam Back Exam: NORMAL INSPECTION - Neurological Exam Neurological Exam: Alert, Awake - Psychiatric Exam Psychiatric exam: Normal Affect, Normal Mood - Skin Skin Exam: Normal Color Assessment and Plan - Assessment and Plan (Free Text) Assessment: Elevated blood pressure reading. HTN. COPD. Breast cancer. Plan: Clonidine 0.1 mg po x 1.
[2017-08-14 07:33] LABS: BLOOD UREA NITROGEN 23 mg/dL (7-21); CALCIUM 8.3 mg/dL (8.4-10.5); GFR AFRICAN-AMERICAN > 60; GFR NON-AFRICAN AMERICAN > 60; HDL CHOLESTEROL 40 mg/dL (29-60)
[2017-08-14 07:42] LABS: LDL CHOLESTEROL 110 mg/dL (0-129)
[2017-08-14 07:47] LABS: BASO # 0.01 K/mm3 (0.0-2.0); BASO % 0.1 % (0.0-3.0); EOS % 0.1 % (1.5-5.0); GRAN # 9.42 (1.4-6.5); GRAN % 91.6 % (50.0-68.0); HEMOGLOBIN 12.1 g/dL (12.0-16.0); LYMPH # 0.6 (1.2-3.4); LYMPH % 5.3 % (22.0-35.0); MEAN CELL VOLUME 85.1 fl (80.0-105.0); MEAN CORPUSCULAR HEMOGLOBIN 26.6 pg (25.0-35.0); MEAN CORPUSCULAR HGB CONC 31.3 g/dl (31.0-37.0); MEAN PLATELET VOLUME 12.1 fl (7.0-11.0); MONO # 0.3 (0.1-0.6); MONO % 2.9 % (1.0-6.0); PLATELET COUNT 100 10^3/uL (120.0-450.0); RBC 4.55 10^6/uL (3.5-6.1); RED CELL DISTRIBUTION WIDTH 14.8 % (11.5-14.5); WHITE BLOOD COUNT 10.3 10^3/ul (4.5-11.0)
[2017-08-14] MEDS ORDERED: Potassium Chloride 20 mEq ER Tab PO SCH (08:00)
--- NOTE | 2017-08-14 08:19 | CP.PCM.PN ---
Subjective - Date & Time of Evaluation Date of Evaluation: 08/14/17 Time of Evaluation: 07:45 - Subjective Subjective: Patient is seen this morning. She is complaining of feeling short of breath when walking to the bathroom. + cough Objective - Vital Signs/Intake and Output Vital Signs (last 24 hours): Temp Pulse Resp BP Pulse Ox 98.3 F 64 18 147/79 95 08/14/17 06:00 08/14/17 06:00 08/14/17 06:00 08/14/17 06:00 08/14/17 06:00 Intake and Output: 08/14/17 08/14/17 06:59 18:59 Intake Total 1860 Balance 1860 - Medications Medications: Current Medications Acetaminophen (Tylenol 325mg Tab) 650 mg PO Q4 PRN PRN Reason: Fever >100.4 F Albuterol/Ipratropium (Duoneb 3 Mg/0.5 Mg (3 Ml) Ud) 3 ml IH Q6 [facility] Last Admin: 08/14/17 01:21 Dose: Not Given Aspirin (Ecotrin) 81 mg PO DAILY [facility] Last Admin: 08/13/17 10:30 Dose: 81 mg Carvedilol (Coreg) 3.125 mg PO BID [facility] Last Admin: 08/13/17 18:36 Dose: 3.125 mg Ceftriaxone Sodium (Rocephin 1 Gram Ivpb) 1 gm in 100 mls @ 100 mls/hr IVPB DAILY [facility] PRN Reason: Protocol Last Admin: 08/13/17 10:31 Dose: 100 mls/hr Azithromycin (Zithromax 500mg In Ns) 500 mg in 250 mls @ 167 mls/hr IVPB DAILY [facility] PRN Reason: Protocol Last Admin: 08/13/17 11:00 Dose: 167 mls/hr Sodium Chloride (Sodium Chloride 0.9%) 1,000 mls @ 75 mls/hr IV .[id number] [facility] Losartan Potassium (Cozaar) 50 mg PO DAILY [facility] Last Admin: 08/13/17 10:30 Dose: 50 mg Methylprednisolone (Solu-Medrol) 40 mg IVP Q12 [facility] Last Admin: 08/13/17 22:12 Dose: 40 mg Tiotropium [place] (Spiriva) 18 mcg IH DAILY [facility] Last Admin: 08/13/17 10:32 Dose: 18 mcg - Labs Labs: 08/14/17 06:30 08/14/17 06:30 - Head Exam Head Exam: ATRAUMATIC, NORMOCEPHALIC - Respiratory Exam Respiratory Exam: Rhonchi, NORMAL BREATHING PATTERN - Cardiovascular Exam Cardiovascular Exam: +S1, +S2 - GI/Abdominal Exam GI & Abdominal Exam: Soft, Normal Bowel Sounds. absent: Tenderness - Extremities Exam Extremities Exam: Normal Inspection - Neurological Exam Neurological Exam: Alert, Awake, Oriented x3 Assessment and Plan - Assessment and Plan (Free Text) Assessment: Pneumonia COPD exacerbation HTN Elevated troponin - rule out NSTEMI Rhabdomyolysis electrolyte imbalance History of breast cancer Plan: Patient is on IV Rocephin and Zithromax for pneumonia. Infectious disease consult appreciated. Cultures are still pending. Cardiology consult appreciated. 3rd set of troponin is within normal limits. continue ASA, Plavix, Coreg and Losartan. awaiting repeat CPK. Patient does not have any history of fall. continue IV fluids. Awaiting results of CT chest. continue respiratory treatments and solumedrol. Will consult pulmonary for pneumonia with advanced chronic obstructive pulmonary disease.
[2017-08-14 08:43] LABS: URINE BILIRUBIN NEGATIVE (NEGATIVE); URINE BLOOD TRACE-INTACT (NEGATIVE); URINE GLUCOSE (UA) NEGATIVE (NEGATIVE); URINE LEUKOCYTE ESTERASE NEGATIVE Leu/uL (NEGATIVE); URINE NITRATE NEGATIVE (NEGATIVE); URINE PROTEIN TRACE mg/dL (<30 mg/dL); URINE UROBILINOGEN 0.2 E.U./dL (<1 E.U./dL)
[2017-08-14 08:47] LABS: URINE APPEARANCE CLEAR (CLEAR); URINE COLOR YELLOW (YELLOW)
[2017-08-14 08:53] LABS: BAND 1 % (0-2); LYMPHOCYTE 3 % (22.0-35.0); MONOCYTE 2 % (1.0-6.0); NEUTROPHIL 94 % (50.0-70.0); PLATELET ESTIMATE LOW (NORMAL)
[2017-08-14 09:00] LABS: URINE BACTERIA SMALL (NEG); URINE EPITHELIAL CELLS 0 - 2 /hpf (0-5); URINE RBC 0 - 2 /hpf (0-2); URINE WBC 0 - 2 /hpf (0-6)
--- NOTE | 2017-08-14 09:26 | CT ---
PROCEDURE: CT Chest without contrast HISTORY: pneumonia, rule out malignancy COMPARISON: None. TECHNIQUE: Contiguous axial images were obtained through the chest without intravenous contrast enhancement. Sagittal and coronal reconstructions were performed. Radiation dose (DLP): 292 mGy-cm. This CT exam was performed using one or more of the following dose reduction techniques: Automated exposure control, adjustment of the mA and/or kV according to patient size, and/or use of iterative reconstruction technique. FINDINGS: LUNGS: There is a 7.6 mm nodule in the left upper lobe. This is partially calcified. There are no prior CT studies for comparison. Follow-up is recommended MEDIASTINUM: Unremarkable thoracic aorta. No aneurysm. Normal sized heart. Main pulmonary artery unremarkable. No vascular congestion. No lymphadenopathy. PLEURA: No pleural fluid. No pneumothorax. BONES: No fracture. No destructive lesion. UPPER ABDOMEN: Grossly unremarkable. OTHER FINDINGS: None. IMPRESSION: There is a 7.6 mm nodule in the left upper lobe. This is partially calcified. There are no prior CT studies for comparison. Follow-up is recommended
[2017-08-14] MEDS: Tiotropium 18 mcg Cap For Inhalation IH SCH (10:51)
[2017-08-14] MEDS: Azithromycin 500MG/NS 250ml 500 MG/250 ML BAG IVPB SCH (10:52)
[2017-08-14] MEDS: MethylPREDNISolone 40 mg Vial IVP SCH ×2 (10:52→22:52)
[2017-08-14] MEDS: Sodium Chloride 0.9% 1,000 ML IV SCH (10:53)
[2017-08-14 10:57] LABS: CK MB% 1.1 % (2.5-3.0); CK-MB 11.7 ng/mL (0.0-3.6)
--- NOTE | 2017-08-14 12:23 | CON ---
PULMONARY CONSULTATION DATE: 08/14/2017 REFERRING PHYSICIAN: Nikolai Fountain MD REASON FOR CONSULTATION: Chronic obstructive pulmonary disease. HISTORY OF PRESENT ILLNESS: The patient is a 77-year-old female, with past medical history significant for advanced chronic obstructive pulmonary disease, positive extensive smoking history - still smokes, hypertension, who presents to [facility] with a 3-day history of worsening shortness of breath at rest, dyspnea on exertion, cough, and sputum production. There is no history of chest pain, coughing up of blood, or chest pain - made worse with deep respirations. There is no history of temperatures, chills, or infectious exposure. There is no history of night sweats, weight loss, or appetite change prior to the above events. No history of leg or calf pains. No history of syncope or diaphoresis. No history of recent travel or trauma. REVIEW OF SYSTEMS: No history of nausea, vomiting, or diarrhea. No acute urinary symptoms. No new neurologic or musculoskeletal complaints. Rest of the review of systems negative. ALLERGIES: NO KNOWN ALLERGIES. SOCIAL HISTORY: Positive for extensive tobacco usage -still smokes, no alcohol. FAMILY HISTORY: No inheritable diseases. HOME MEDICATIONS: Include Spiriva, Cozaar, Symbicort, Zebeta. PHYSICAL EXAMINATION: GENERAL: The patient is not short of breath at rest. She is not using accessory muscles for breathing. VITAL SIGNS: Temperature is 98.3, pulse 64, respirations 18, blood pressure 147/79. Oxygen saturation on nasal cannula is 95-96%. HEENT: Normocephalic, atraumatic. No JVD. CARDIOVASCULAR: Positive S1, S2. No S3 gallop. LUNGS: Crackles at both bases. Mild bilateral rhonchi and wheezing are also appreciated. EXTREMITIES: Mild edema. No cyanosis, no clubbing. Calves are nontender to palpation. GI: Abdomen is soft, nontender and nondistended. Bowel sounds are positive. SKIN: No acute rash. NEUROLOGIC: Exam limited at the present time. PERTINENT LABORATORY DATA: Chest x-ray was done on 08/12/2017 and reviewed. Chest x-ray shows a possible small patchy infiltrate noted at the right base. CBC: White count 10.3, hemoglobin 12.1, hematocrit 38.7, platelets of 100,000. Complete metabolic profile: Chloride 108, BUN 23, creatinine 0.6, glucose 126, calcium 8.3. Rest of the metabolic profile is within normal limits. Peak troponin 0.13. Procalcitonin - 2.84. IMPRESSION: 1. Acute bronchitis. 2. Advanced chronic obstructive pulmonary disease. 3. Rule out right lower lobe pneumonia. 4. Non-ST elevation myocardial infarction. PLAN: The patient presents to [facility] with a 3-day history of worsening pulmonary symptoms. I did review the chest x-ray as above. The chest x-ray does show a possible small patchy infiltrate at the right lower lobe/base. I have also reviewed the laboratory data. A positive procalcitonin is noted. CT scan of the chest was done for further evaluation. Official results are pending. The patient has been pancultured and started on appropriate antibiotic therapy. There have been no temperatures noted while in the hospital. As above, a positive troponin is noted. Input by Dr. Madison (Cardiology) is noted. On physical exam, the patient is in [id number] bronchospasm. I will continue with the current nebulizer treatments and intravenous steroids for now. I will also add inhaled Pulmicort. The patient does feel better this morning, and is clinically improved - compared to the past few days. Additional pulmonary intervention will be based on the above results, as well as the clinical status of the patient. I will discuss the above with Dr. Fountain. Thank you very much for this pulmonary consultation. Canelo Gorman MD [facility]
[2017-08-14] MEDS: cefTRIAXone 1 gm 1 GM/100 ML BAG IVPB SCH (14:14)
[2017-08-14] MEDS: Budesonide 0.5 mg/2 ml Inhal Susp UD IH SCH (21:29)
--- NOTE | 2017-08-14 22:38 | PN ---
DATE: 08/14/2017 SUBJECTIVE: The patient is in bed, in no acute distress, nontoxic. OBJECTIVE: VITAL SIGNS: On exam, temperature is 98, blood pressure is 150/70, respiratory rate of 20. HEENT: Examination of HEENT is unremarkable. NECK: Supple. LUNGS: Have decreased breath sounds. HEART: Normal S1, S2. ABDOMEN: Soft. LABORATORY EXAMINATION: Reveals a white count of 10,000. Chemistries reveal a BUN of 23, creatinine of 0.6. Procalcitonin is 2.84 and CK is over 1000. Blood cultures are negative. CAT scan of the chest, 7.6 mm nodule in the left upper lobe, partially calcified. note is reviewed. ASSESSMENT AND PLAN: This is a 77-year-old female with a history of hypertension, chronic obstructive lung disease, breast cancer, history of right mastectomy and with exacerbation of chronic obstructive lung disease with community-acquired pneumonia, elevated procalcitonin, currently on ceftriaxone and azithromycin with elevated procalcitonin, negative blood cultures, CAT scan is consistent with 7.6 mm nodule in the left upper lobe, partially calcified. We will switch to p.o. azithromycin, and we will repeat a procalcitonin. Nikita Putnam MD
--- NOTE | 2017-08-14 23:10 | PN ---
DATE: 08/14/2017 REASON FOR CONSULTATION: Followup shortness of breath and hypertension. SUBJECTIVE: The patient denies any chest pain, shortness of breath, or any palpitations. PHYSICAL EXAMINATION GENERAL: Not in apparent distress, lying flat in the bed. VITAL SIGNS: As follows; temperature afebrile, heart rate 70, and blood pressure 159/74. HEENT: PERRLA intact. NECK: Supple. No carotid bruit or thyromegaly. CHEST: Clear to auscultation. HEART: S1 and S2 regular. ABDOMEN: Soft. EXTREMITIES: Clubbing and cyanosis negative. LABORATORY DATA: Blood workup as follows; WBC 10.3, hemoglobin 12.8, hematocrit 38.7, and platelet count 100. SMA-7; sodium 140, potassium 5, chloride 108, carbon dioxide of 25, anion gap of 12, BUN 23, and creatinine 0.6. Troponin is 0.12. IMPRESSION AND PLAN: Pneumonia, exacerbation of chronic obstructive pulmonary disease, hypertension, mildly elevated troponin, need to rule out [id number] myocardial infarction and coronary artery disease. Continue aspirin. Continue Plavix. Echo to access LV function. No anginal symptoms. We will follow closely with you. No evidence of congestive heart failure, although proBNP was elevated, but clinically not in failure. We will follow the trend. We will follow the echo. EKG show pretty benign normal sinus. Once the pneumonia symptoms improved, consider the stress test. The patient has 7.6 mm nodule in the left upper lobe partially calcified. No prior CT to compare. Most likely these symptoms is secondary to hemodynamic instability and pneumonia, but we will follow the troponin trend and repeat the troponin in the morning. Interim, continue aspirin. Continue Coreg. Continue losartan. Continue IV fluid. We will add Plavix 75 mg daily. Depending on the clinical course, we will suggest invasive versus noninvasive cardiac workup, although, the patient is completely asymptomatic and EKG is pretty benign. Thank you Dr. Fountain for providing us the opportunity in taking care of the patient. Elie Cruz MD
[2017-08-15] MEDS: Albuterol-Ipratrop 3 mg / 0.5 (3 ml) UD IH SCH ×4 (02:18→19:50)
[2017-08-15] MEDS: Budesonide 0.5 mg/2 ml Inhal Susp UD IH SCH ×2 (07:25→19:50)
[2017-08-15 07:41] LABS: TROPONIN I 0.07 ng/mL
[2017-08-15 07:57] LABS: BLOOD UREA NITROGEN 16 mg/dL (7-21); CALCIUM 8.7 mg/dL (8.4-10.5); GFR AFRICAN-AMERICAN > 60; GFR NON-AFRICAN AMERICAN > 60
--- NOTE | 2017-08-15 08:04 | PN ---
DATE: 08/15/2017 PULMONARY NOTE SUBJECTIVE: The patient appears comfortable this morning. She is not short of breath at rest. PHYSICAL EXAMINATION: VITAL SIGNS: Temperature is 98.6, pulse 94, respirations 18/20, blood pressure 145/90. Oxygen saturation on nasal cannula is 94%. HEENT: Normocephalic, atraumatic. NECK: No JVD. CARDIOVASCULAR: Positive S1, S2. No S3 gallop. LUNGS: Less crackles at the bases. Less rhonchi. Less wheezing. EXTREMITIES: Mild edema. No cyanosis, no clubbing. Calves are nontender to palpation. GI: Abdomen is soft, nontender and nondistended. Bowel sounds are positive. SKIN: No acute rash. NEUROLOGIC: Exam limited at the present time. PERTINENT LABORATORY DATA: CT scan of the chest was done on 08/13/2017 and reviewed. There is a 7.6 mm nodule on the left upper lobe. The nodule is partially calcified. There is no other mass, nodule or consolidation noted. There is no lymphadenopathy. IMPRESSION: 1. Acute bronchitis. 2. Advanced chronic obstructive pulmonary disease. 3. Solitary pulmonary nodule - left upper lobe. 4. Non-ST elevation myocardial infarction. PLAN: The patient appears much more comfortable this morning. She is not short of breath at rest. She does state to feeling much better overall. On physical exam, her bronchospasm is certainly less. I will continue the current nebulizer treatments and decrease the intravenous steroids this morning. I did review the CT scan of the chest - noted above. Other than the left upper lobe solitary pulmonary nodule, the CT scan is unremarkable. The patient remains on antibiotic therapy. Input by Infectious Disease is noted. There are no temperatures noted. There is no leukocytosis. Input by Cardiology (Dr. Cruz) is also noted. Clinical status of the patient is significantly improved - compared to the initial presentation. However, the future status/prognosis for this patient does remain guarded - as she does continue to have advanced lung disease. Lastly, I did discuss the CT scan findings with the patient at length. She is well aware that she will need to follow up with me in the office. I have given her my card/information for a followup appointment. I will also discuss the above with Dr. Fountain. Canelo Gorman MD [facility]
--- NOTE | 2017-08-15 08:19 | CP.PCM.PN ---
Subjective - Date & Time of Evaluation Date of Evaluation: 08/15/17 Time of Evaluation: 07:50 - Subjective Subjective: Patient is seen this morning. Her IV site blew, and left arm is swollen. She complains of shortness of breath. Objective - Vital Signs/Intake and Output Vital Signs (last 24 hours): Temp Pulse Resp BP Pulse Ox 97.6 F 94 H 20 160/90 H 94 L 08/15/17 06:00 08/15/17 07:27 08/14/17 17:40 08/15/17 06:00 08/14/17 17:40 Intake and Output: 08/15/17 08/15/17 06:59 18:59 Intake Total 540 Balance 540 - Medications Medications: Current Medications Acetaminophen (Tylenol 325mg Tab) 650 mg PO Q4 PRN PRN Reason: Fever >100.4 F Albuterol/Ipratropium (Duoneb 3 Mg/0.5 Mg (3 Ml) Ud) 3 ml IH Q6 [facility] Last Admin: 08/15/17 07:25 Dose: 3 ml Aspirin (Ecotrin) 81 mg PO DAILY [facility] Last Admin: 08/14/17 10:52 Dose: 81 mg Azithromycin (Zithromax) 500 mg PO DAILY [facility] PRN Reason: Protocol Stop: 08/20/17 10:01 Budesonide (Pulmicort Respules) 0.5 mg IH [id number] [facility] Last Admin: 08/15/17 07:25 Dose: 0.5 mg Carvedilol (Coreg) 3.125 mg PO BID [facility] Last Admin: 08/14/17 17:30 Dose: 3.125 mg Clopidogrel Bisulfate (Plavix) 75 mg PO DAILY [facility] Last Admin: 08/14/17 17:30 Dose: 75 mg Ceftriaxone Sodium (Rocephin 1 Gram Ivpb) 1 gm in 100 mls @ 100 mls/hr IVPB DAILY [facility] PRN Reason: Protocol Last Admin: 08/14/17 14:14 Dose: 100 mls/hr Sodium Chloride (Sodium Chloride 0.9%) 1,000 mls @ 75 mls/hr IV .[id number] [facility] Last Admin: 08/14/17 10:53 Dose: 75 mls/hr Losartan Potassium (Cozaar) 50 mg PO DAILY [facility] Last Admin: 08/14/17 10:51 Dose: 50 mg Methylprednisolone (Solu-Medrol) 30 mg IVP Q12 [facility] Tiotropium [place] (Spiriva) 18 mcg IH DAILY [facility] Last Admin: 08/14/17 10:51 Dose: 18 mcg - Labs Labs: 08/14/17 06:30 08/15/17 06:30 - Constitutional Appears: No Acute Distress - Head Exam Head Exam: ATRAUMATIC, NORMOCEPHALIC - Respiratory Exam Respiratory Exam: Decreased Breath Sounds, Rhonchi - Cardiovascular Exam Cardiovascular Exam: +S1, +S2 - GI/Abdominal Exam GI & Abdominal Exam: Soft, Normal Bowel Sounds. absent: Tenderness - Extremities Exam Extremities Exam: Normal Inspection - Neurological Exam Neurological Exam: Alert, Awake, Oriented x3 Assessment and Plan - Assessment and Plan (Free Text) Assessment: Pneumonia COPD exacerbation Elevated troponin rule out NSTEMI Elevated CK/ Rhabdomyolysis HTN History of breast cancer Plan: Patient's IV site blew last night and patient has poor access. Will order Midline to be inserted. continue IV fluids for rhabdomyolysis. CPK now trending downward. continue IV rocephin, zithromax, solumedrol and respiratory treatments Pulmonary consult appreciated. CT chest shows 7.6 mm partially calcified nodule in left upper lobe. Patient will followup with mold maker as outpatient for monitoring the nodule. Patient's blood pressure is rising. Will increase dose of Coreg. continue ASA , Plavix and Losartan. Troponin is trending downward. Echocardiogram done, report pending. We will order physical therapy evaluation and TRCU as patient is deconditioned and would benefit from rehab for weakness and deconditioned state.
[2017-08-15 08:22] LABS: CK MB% 1.3 % (2.5-3.0); CK-MB 8.4 ng/mL (0.0-3.6)
[2017-08-15] MEDS: Tiotropium 18 mcg Cap For Inhalation IH SCH (09:24)
[2017-08-15] MEDS ORDERED: MethylPREDNISolone 40 mg Vial IVP SCH (10:00)
[2017-08-15] MEDS: cefTRIAXone 1 gm 1 GM/100 ML BAG IVPB SCH (11:29)
[2017-08-15] MEDS: Sodium Chloride 0.9% 1,000 ML IV SCH (11:30)
--- NOTE | 2017-08-15 11:32 | CARD ---
APPROVED REPORT EXAM: Two-dimensional and M-mode echocardiogram with Doppler and color Doppler. Other Information Quality : AverageRhythm : INDICATION Dyspnea , HBP 2D DIMENSIONS Left Atrium (2D)4.3 (1.6-4.0cm)IVSd1.2 (0.7-1.1cm) LVDd4.5 (3.9-5.9cm)LVOT Diameter2.0 (1.8-2.4cm) PWd1.1 (0.7-1.1cm)LVDs3.0 (2.5-4.0cm) FS (%) 33.9 %LVEF (%)63.0 (>50%) M-Mode DIMENSIONS Aortic Root3.10 (2.2-3.7cm)Aortic Cusp Exc.0.90 (1.5-2.0cm) Aortic Valve AoV Peak Mnwpakog574.0cm/sAoV VTI51.8cmAO Peak GR.19mmHg LVOT Peak Mnejrlnu69.0cm/sLVOT VTI24.30cmAO Mean GR.11mmHg JERRY (VMAX)1.97gz1JFV (VTI)1.47cm2 Mitral Valve MV E Geivwmbm87.2cm/sMV A Wcnfjsvm54.3cm/sE/A ratio0.7 TDI Lateral E' Peak V8.38cm/sMedial E' Peak V4.87cm/sE/Lateral E'7.8 E/Medial E'13.4 Pulmonary Valve PV Peak Vlekizks06.6cm/sPV Peak Grad.2mmHg Tricuspid Valve TR Peak Wsobeflr306qu/sRAP UWHCFIOZ02pmTvFB Peak Gr.24mmHg [id number] LEFT VENTRICLE The left ventricle is normal size. There is normal left ventricular wall thickness. The left ventricular function is normal. The left ventricular ejection fraction is within the normal range. There is normal LV segmental wall motion. RIGHT VENTRICLE The right ventricle is normal size. ATRIA The left atrium size is normal. The right atrium size is normal. The interatrial septum is intact with no evidence for an atrial septal defect. AORTIC VALVE The aortic valve is mildly to moderately calcified. There is trace aortic regurgitation. MITRAL VALVE The mitral valve is mildly thickened but opens well. Mitral annular calcification is moderate. Mitral regurgitation is mild. TRICUSPID VALVE The tricuspid valve is normal in structure. There is trace tricuspid regurgitation. PULMONIC VALVE The pulmonic valve is not well visualized. GREAT VESSELS The aortic root is normal in size. PERICARDIAL EFFUSION There is no pericardial effusion. <Conclusion> The left ventricle is normal size. There is normal left ventricular wall thickness. The left ventricular function is normal. The aortic valve is mildly to moderately calcified. Aortic sclerosis vs. mild . Mitral regurgitation is mild. There is trace tricuspid regurgitation.
--- NOTE | 2017-08-15 12:59 | PN ---
DATE: 08/15/2017 LOCATION: The patient is in room 377, bed 2. REASON FOR CONSULTATION: Shortness of breath and hypertension. SUBJECTIVE: The patient still complains of shortness of breath. Denies chest pain or palpitation. She says last night she was told by nurses that heart rate was increased. PHYSICAL EXAMINATION: VITAL SIGNS: Blood pressure 160/90, respirations 20, heart rate at present around 104 per minute, and temperature 98.6. HEENT: Head is normocephalic. Eyes; pupils normal. Conjunctivae normal. Nose and throat normal. NECK: JVP low. Carotids equal. THORAX: AP diameter normal. LUNGS: No significant rales or diminished breath sounds. CARDIOVASCULAR: S1 and S2. ABDOMEN: Soft. No tenderness. No organomegaly. EXTREMITIES: No clubbing. No cyanosis. LABORATORY DATA: WBC 10.3, hemoglobin 12.1, hematocrit 38.7, and platelets 100. Sodium 138, potassium 4.0, BUN 16, creatinine 0.6, random glucose 123, CPK 654. Troponin 0.07; first troponin 0.06, second troponin 0.13, third troponin 0.10, fourth troponin 0.07. Triglyceride 102, cholesterol 96, LDL 110, HDL 40. TSH 0.20 and free T4 1.26. DIAGNOSES: Pneumonia, exacerbation of chronic obstructive pulmonary disease, hypertension, one elevation of troponin elevation borderline, significant not sure, although pro-BNP is elevated, but clinically the patient has no congestive heart failure, sinus tachycardia, probably related to underlying pulmonary status. PLAN: We are going to increase carvedilol to 25 mg b.i.d.; the patient is taking 12.5 mg b.i.d., it will help her in the heart rate and also it will help the blood pressure. We will do the stress test of the patient, when pulmonary status gets better. The patient on losartan 50 daily, aspirin 81 daily, Plavix 75 mg daily, Rocephin 1 g IV daily, the patient is going to need 75 mL normal saline per hour, Solu-Medrol 30 mg IV q.12 hours, Spiriva 18 mcg IH daily, Zithromax 500 mg p.o. daily. We will continue present therapy. We will follow the echo report and we will follow with you. Elie Madison MD
--- NOTE | 2017-08-15 13:38 | PQF AMI ---
This form is a permanent part of the medical record Dr. Lane, Documentation reflects that patient was admitted with pneumonia and COPD exacerbation. Labs with elevated troponin on admission. Cardiology noted lack of chest pain, unsure of significance of troponin elevation. There is some uncertainty as to whether or not patient had PR. Please document specifically, when determined, if PR was ruled out. Clarification of your documentation is requested to better reflect the severity of illness and intensity of treatment of your patient. Indicators present [] Diagnosis of PR without specification of time frame (within 28 days of admission of greater than 28 days prior to admission) [] Diagnosis of subsequent PR (time frame of previous PR within 28 days of admission or greater than 28 days of admission) [] Diagnosis of PR w/o specified site [] EKG positive for changes (i.e.; ST elevation, non-ST elevation, Q-wave changes, etc.) [x] Elevated Troponins [x] Elevated Cardiac Enzymes [x] Cardiac consult documentation of [] Chest pain/ACS/Unstable Angina [] Echo findings of [] Other: [] Location in the medical record that reflects the above clinical findings:[] Other Treatment Provided:[] PHYSICIAN'S RESPONSE Based on your medical judgment of the clinical indicators outlined above, are you treating this patient for a known or suspected: [ ] NSTEMI [ ] STEMI Site: [ ] [ ] ACS/Unstable Angina [ ] Angina :[ ] [ ] Other, please indicate [ ]___ If Unable to Determine, please check the box, sign and date Present On Admission (POA) Indicator: [ ] Present at the time of admission [ ] Not present at the time of admission [x ] Clinically Undetermined - Patient had one elevation of troponin. Unable to determine whether patient had PR as she will have stress test once pneumonia and respiratory state improves. * If you have any questions please call:[ ] * Thank you, [ ]Pooja Null [facility] #[id number] tanning consultant In responding to this query, please exercise your independent professional judgment. The fact that a question is asked does not imply that any particular answer is desired or expected. Thank you for your clarification on this documentation. MARSHAL
[2017-08-15] MEDS ORDERED: Saliva Substitute 44.3 ML PO PRN (13:39)
[2017-08-15 17:39] VITALS: BP 167/94; PULSE 79
[2017-08-15 19:49] VITALS: RESP 18; TEMP 98.6; O2SAT 94
--- NOTE | 2017-08-15 23:56 | PN ---
DATE: 08/15/2017 SUBJECTIVE: The patient was seen early this morning in room 377, bed 2. The patient is in bed, in no acute distress, nontoxic. PHYSICAL EXAMINATION: VITAL SIGNS: Temperature of 98, blood pressure is 167/90, respiratory rate of 18. HEENT: Unremarkable. NECK: Supple. LUNGS: Have decreased breath sounds. HEART: Normal S1, S2. ABDOMEN: Soft, nontender. LABORATORY EXAMINATION: Reveals the patient's white count is 10.3, hemoglobin of 12, platelets of 100. BUN of 16, creatinine of 0.6. Urinalysis is noted and serology reveals influenza is negative. Microbiology reveals the blood cultures no growth. Urine cultures are no growth. ASSESSMENT AND PLAN: This is a 77-year-old female with a history of hypertension, chronic obstructive lung disease, breast cancer, history of right mastectomy, exacerbation of chronic obstructive lung disease, community-acquired pneumonia, elevated procalcitonin on ceftriaxone and azithromycin. Negative blood cultures. CAT scan is noted. Partially calcified nodule. Patient on p.o. azithromycin. Repeat procalcitonin is down to 0.67 to complete with p.o. Zithromax. Nikita Putnam MD
--- NOTE | 2017-08-16 21:22 | DS ---
BRIEF HISTORY: This is a 77-year-old female with history of hypertension, chronic obstructive pulmonary disease, breast cancer, history of right mastectomy, who presented to the emergency room with low-grade fever, tachycardia, and shortness of breath. Patient states that she had been feeling weak and tired for the prior two days and coughing. She denied nausea, vomiting, chest pain, or diarrhea. In the emergency room, laboratory showed potassium of 3.2, BUN 22, creatinine 0.7, sodium was 130. Troponin was 0.14, which is elevated and total CK was 1061. Patient was admitted to the telemetry floor. HOSPITAL COURSE: Patient was started on IV Rocephin, Zithromax for pneumonia. Dr. Putnam, Infectious Disease financial services consultant, was called to see the patient. Blood, urine, and sputum cultures were ordered. CPK was repeated as well as troponin. Cardiology was consulted. Patient was continued on aspirin, losartan for blood pressure, and Coreg was given to her as Bisoprolol was not on formulary. She was given respiratory treatment via nebulizer, Solu- Medrol, and oxygen. She was also given IV fluids for dehydration and rhabdomyolysis. Potassium and magnesium were replaced. Sodium normalized with IV fluids. Potassium, and magnesium also normalized after supplementation. Blood and urine cultures were negative. CT of the chest was done, which found a 7.6-mm nodule. Patient was seen by Dr. Gorman who is a implementation analyst and Pulmicort respiratory treatments were added. She was advised to followup with him regarding the pulmonary nodule as an outpatient. Cardiologists, Dr Cruz and Dr. Madison saw the patient and started her on Plavix. She will have possible stress test once her pneumonia clears. Echocardiogram showed left ventricle to be normal on size, normal LV function, mild to moderately calcified aortic valve, with aortic sclerosis versus mild aortic stenosis. As patient needed further tapering of steroids and physical therapy for deconditioning, she was transferred to the transitional care unit. DISCHARGE DIAGNOSES: Pneumonia, chronic obstructive disease exacerbation, elevated troponin, rhabdomyolysis, hypertension, history of breast cancer, status post right mastectomy. DISCHARGE MEDICATIONS: Coreg 25 mg twice a day, Cozaar 50 mg once a day, DuoNeb q.6 hours, Aspirin 81 mg daily, Plavix 75 mg daily, Pulmicort 0.5 mg twice a day, Rocephin 1 g IV daily, Solu-Medrol 30 mg IV q. 12, Spiriva 18 mcg daily, and Zithromax 500 mg p.o. daily. FOLLOWUP: Patient will be followed up in the transitional care unit. Law Fountain MD [facility] # [id number] MTDM[facility]
== END 2017-08-15 19:39 | DRG 190 ==
LOC: ED 17:49 → ERH 20:13 → 3RSO 22:49
PROVIDERS: ADMIT Internal Medicine; ATTEND Internal Medicine
DX: J44.1 Chronic obstructive pulmonary disease with (acute) exacerbation (principal); J18.9 Pneumonia, unspecified organism; M62.82 Rhabdomyolysis; E86.0 Dehydration; E87.1 Hypo-osmolality and hyponatremia; J44.0 Chronic obstructive pulmonary disease with (acute) lower respiratory infection; J20.9 Acute bronchitis, unspecified; I10 Essential (primary) hypertension; R91.1 Solitary pulmonary nodule; F17.200 Nicotine dependence, unspecified, uncomplicated; E87.6 Hypokalemia; E83.42 Hypomagnesemia; Z85.3 Personal history of malignant neoplasm of breast; Z90.11 Acquired absence of right breast and nipple

== ENCOUNTER 2017-08-15 19:39 | Inpatient (IN) | payer OTHER ==
[2017-08-15] MEDS: MethylPREDNISolone 40 mg Vial IVP SCH (22:04)
[2017-08-15 23:55] VITALS: BMI 23.3
[2017-08-16] MEDS: Albuterol-Ipratrop 3 mg / 0.5 (3 ml) UD IH SCH ×5 (02:20→19:52)
[2017-08-16] MEDS: cefTRIAXone 1 gm 1 GM/100 ML BAG IVPB SCH (05:10)
[2017-08-16] MEDS: Budesonide 0.5 mg/2 ml Inhal Susp UD IH SCH ×3 (06:35→19:52)
--- NOTE | 2017-08-16 08:00 | CP.PCM.HP ---
History of Present Illness - History of Present Illness History of Present Illness: 77 year old female with history of chronic obstructive pulmonary disease, hypertension, breast cancer with history of right mastectomy who was admitted to telemetry for pneumonia and exacerbation of chronic obstructive pulmonary disease. She is now admitted to the transitional care unit for physical therapy and rehab for deconditioning, tapering of steroids and continued treatment of pneumonia. Present on Admission - Present on Admission Any Indicators Present on Admission: No History of DVT/PE: No History of Uncontrolled Diabetes: No Urinary Catheter: No Decubitus Ulcer Present: No Review of Systems - Constitutional Constitutional: absent: Chills, Fever, Night Sweats - Cardiovascular Cardiovascular: Dyspnea. absent: Chest Pain, Diaphoresis - Respiratory Respiratory: As Per HPI - Gastrointestinal Gastrointestinal: absent: Abdominal Pain, Constipation, Nausea, Vomiting Past Patient History - Infectious Disease Hx of Infectious Diseases: None - Past Social History Smoking Status: Heavy Smoker > 10 Cigarettes Daily - CARDIAC Hx Pacemaker: No - PULMONARY Hx Respiratory Disorders: Yes Hx Chronic Obstructive Pulmonary Disease (COPD): Yes - NEUROLOGICAL Hx Neurological Disorder: No - HEENT Hx HEENT Problems: No - RENAL Hx Chronic Kidney Disease: No - ENDOCRINE/METABOLIC Hx Endocrine Disorders: No - HEMATOLOGICAL/ONCOLOGICAL Hx Cancer: Yes - INTEGUMENTARY Hx Dermatological Problems: No - MUSCULOSKELETAL/RHEUMATOLOGICAL Hx Falls: No - GASTROINTESTINAL Hx Gastrointestinal Disorders: No - GENITOURINARY/GYNECOLOGICAL Hx Genitourinary Disorders: No Hx Reproductive Disorders: No - PSYCHIATRIC Hx Psychophysiologic Disorder: No Hx Substance Use: No - SURGICAL HISTORY Hx Mastectomy: Yes - ANESTHESIA Hx Anesthesia: Yes Hx Anesthesia Reactions: No Meds Allergies/Adverse Reactions: Allergies Allergy/AdvReac Type Severity Reaction Status Date / Time No Known Allergies Allergy Verified 08/12/17 17:55 Physical Exam - Constitutional Appears: No Acute Distress - Head Exam Head Exam: ATRAUMATIC, NORMOCEPHALIC - Respiratory Exam Respiratory Exam: Rhonchi, NORMAL BREATHING PATTERN - Cardiovascular Exam Cardiovascular Exam: +S1, +S2 - GI/Abdominal Exam GI & Abdominal Exam: Normal Bowel Sounds, Soft. absent: Tenderness - Extremities Exam Extremities exam: Positive for: normal inspection - Neurological Exam Neurological exam: Alert, CN II-XII Intact, Oriented x3 Results - Vital Signs Recent Vital Signs: Last Vital Signs Temp 98.1 F 08/16/17 06:39 Pulse 79 08/16/17 06:39 Resp 20 08/16/17 06:39 BP 181/79 H 08/16/17 06:39 Pulse Ox 95 08/16/17 06:39 - Labs Result Diagrams: 08/17/17 06:30 08/17/17 06:30 Assessment & Plan - Assessment and Plan (Free Text) Assessment: Pneumonia Chronic obstructive pulmonary disease exacerbation Rhabdomyolysis Elevated troponin - R/O NSTEMI HTN Arthritis History of breast cancer s/p right mastectomy Plan: continue IV rocephin and po zithromax for pneumonia as per infectious disease continue nebulizer treatments, IV solumedrol and oxygen for COPD troponin, potassium, sodium and magnesium now normalized possible stress test as per cardiology once pneumonia has cleared CPK trending downward, will repeat CPK in am continue physical therapy
[2017-08-16] MEDS ORDERED: cefTRIAXone 1 gm 1 GM/100 ML BAG IVPB SCH (10:00)
[2017-08-16] MEDS: MethylPREDNISolone 40 mg Vial IVP SCH ×2 (10:12→17:07)
--- NOTE | 2017-08-16 10:34 | PN ---
DATE: PULMONARY NOTE SUBJECTIVE: The patient appears very comfortable this morning. She is not short of breath at rest. PHYSICAL EXAMINATION VITAL SIGNS: Temperature is 98.1, pulse is 79, respirations 18/20, blood pressure 181/79. Oxygen saturation on nasal cannula is 95%. HEENT: Normocephalic, atraumatic. No JVD. CARDIOVASCULAR: Positive S1, S2. No S3 gallop. LUNGS: No significant crackles are heard at the bases. Less rhonchi. No wheezing this morning. EXTREMITIES: Mild edema. No cyanosis, no clubbing. Calves are nontender to palpation. GI: Abdomen is soft, nontender and nondistended. Bowel sounds are positive. SKIN: No acute rash. NEUROLOGIC: Limited at the present time. IMPRESSION: 1. Acute bronchitis. 2. Advanced chronic obstructive pulmonary disease. 3. Solitary pulmonary nodule - left upper lobe. 4. Non-ST elevation myocardial infarction. PLAN: The patient appears very comfortable this morning. She is not short of breath at rest. She does state to feeling much better overall. On physical exam, her bronchospasm continues to slowly resolve. In addition, the alveolar-arterial gradient also continues to resolve. I will continue the current nebulizer treatments and low-dose intravenous steroids for now. The patient also remains on antibiotic therapy. Cardiology evaluation with Dr. Cruz has been reordered. The patient is now on the transitional unit, where she will participate with physical therapy. Clinical status of the patient is significantly improved. I will discuss the above with the attending physician. Canelo Gorman MD MTDMillie
[2017-08-16] MEDS: Tiotropium 18 mcg Cap For Inhalation IH SCH (10:51)
--- NOTE | 2017-08-16 22:51 | CON ---
DATE: 08/16/2017 LOCATION: The patient in room 318, bed 1. REASON FOR CONSULTATION: Shortness of breath, hypertension. HISTORY OF PRESENT ILLNESS: The patient is a 77-year-old female was admitted to the medical floor with shortness of breath, which was due to exacerbation of COPD and respiratory tract infection. The patient was admitted to the medical floor with cough, shortness of breath with exacerbation of COPD and respiratory tract infection. The patient has known hypertension status post right mastectomy. Now, the patient improved, now is admitted to the Transitional Care Unit for deconditioning and further therapy. PAST MEDICAL HISTORY: Positive for COPD, hypertension, and right mastectomy. Right mastectomy was done for malignancy. PERSONAL HISTORY: Denies smoking. Denies drinking. ALLERGIES: THE PATIENT DENIES ANY ALLERGIES. HOME MEDICATIONS: The patient was on bisoprolol 10 mg daily, Symbicort inhaler, Losartan, Cozaar 50 mg daily, and Spiriva inhalation. REVIEW OF SYSTEMS: All the system was reviewed, positive mentioned in the history, otherwise negative. PHYSICAL EXAMINATION: VITAL SIGNS: Blood pressure 135/69, earlier blood pressure was 181/79, respirations 20, pulse 79 and temperature 98.1. HEENT: Head is normocephalic. Eyes: Pupils normal. Conjunctivae normal. Nose and throat normal. NECK: JVP low. Carotids equal. THORAX: AP diameter normal. LUNGS: Distant pulmonary sounds. No significant rales. CARDIOVASCULAR: S1 and S2. ABDOMEN: Soft, nontender. No organomegaly. Bowel sounds normal. EXTREMITIES: No clubbing. No cyanosis. LABORATORY DATA: This lab was done on 08/14/2017; WBC 10.3, hemoglobin 12.1, hematocrit 38.7, and platelets 100. On 08/15/2017; sodium 138, potassium 4.0, BUN 16, and creatinine 0.6. Troponin 0.07 and CPK 654. Chest x-ray on 08/12/2017 showed bibasilar infiltrates. The left-sided infiltrate was seen on the previous exam, but right-sided infiltrate was new. EKG showed sinus tachycardia 101 per minute, left atrial enlargement. EKG was done on 08/12/2017. CT chest on 08/13/2017, showed 7.6 mm nodule in the left upper lobe, there is partially calcified, there are no prior CT studies to compare. Followup is recommended. Echocardiogram was done on 08/14/2017, normal size LV, normal systolic function, LV with ejection fraction of 63%, aortic valve shows calcification, aortic sclerosis versus mild aortic stenosis, mitral regurgitation and mild trace tricuspid regurgitation. DIAGNOSES: Exacerbation of chronic obstructive pulmonary disease, pneumonia, respiratory tract infection, hypertension. The patient's first troponin was 0.06 on medical floor; second was 0.13, which is elevated; third one 0.10, another one was 0.07. So, there was one troponin elevation, which raises the question of non-ST elevation myocardial infarction. PLAN: Continue the patient with treatment with exacerbation of COPD and pneumonia and deconditioning and once the patient is improved from this, we will do a nuclear stress test to rule out coronary artery disease. The patient on carvedilol 25 b.i.d., Losartan 50 daily, aspirin 81 daily, Plavix 75 daily. The patient is getting Solu-Medrol 30 mg IV q.12 hour, azithromycin 500 mg p.o. daily, Spiriva 18 mcg IH daily. We will monitor blood pressure, if it stay high, we will then adjust the medication further. In the meantime, we will continue to follow with you. Elie Madison MD
[2017-08-17] MEDS: Albuterol-Ipratrop 3 mg / 0.5 (3 ml) UD IH SCH ×4 (03:15→21:01)
--- NOTE | 2017-08-17 03:41 | CON ---
DATE: 08/16/2017 LOCATION: The patient is seen in room 318. CHIEF COMPLAINT: Weakness times several days. HISTORY OF PRESENT ILLNESS: This is a 77-year-old female, seen earlier today in 318, with a history of hypertension, chronic obstructive lung disease, breast cancer, history of right mastectomy, who was admitted to the [facility] with chronic obstructive lung disease, community-acquired pneumonia with underlying congestive heart failure, and the patient has done much better now. No fevers. No chills. No nausea. No vomiting. PAST MEDICAL HISTORY: Significant for hypertension, breast cancer, chronic obstructive lung disease. PAST SURGICAL HISTORY: Significant for right mastectomy. ALLERGIES: THE PATIENT HAS NO KNOWN ALLERGIES. MEDICATIONS: Noted. PHYSICAL EXAMINATION: VITAL SIGNS: The patient's temperature is 98, blood pressure is 120/60, and respiratory rate of 18. HEENT: Examination of HEENT is unremarkable. NECK: Supple adenopathy. LUNGS: Have decreased breath sounds. HEART: Normal S1 and S2. ABDOMEN: Soft, nontender. No rebound or guarding. LABORATORY DATA: Noted. The patient's white count is 10,000, hemoglobin of 12, and platelets are noted. Influenza is negative. ASSESSMENT AND PLAN: This is a 77-year-old female with history of hypertension, chronic obstructive lung disease, breast cancer, history of right mastectomy, with exacerbation of chronic obstructive lung disease, community-acquired pneumonia, elevated procalcitonin, on ceftriaxone and Zithromax. On a CAT scan, the patient has partially calcified nodule, on p.o. Zithromax. The patient's chemistries reveal that the patient did have an elevated procalcitonin, which was 2.84 and it is down to 0.67, and currently the patient is on ceftriaxone and azithromycin and complete a short course of therapy. We will follow closely with you. Nikita Putnam MD
[2017-08-17] MEDS: cefTRIAXone 1 gm 1 GM/100 ML BAG IVPB SCH (05:09)
[2017-08-17] MEDS: MethylPREDNISolone 40 mg Vial IVP SCH ×2 (05:10→17:03)
[2017-08-17 07:13] LABS: GRAN # 3.48 (1.4-6.5); GRAN % 79.1 % (50.0-68.0); HEMOGLOBIN 12.7 g/dL (12.0-16.0); LYMPH # 0.6 (1.2-3.4); LYMPH % 12.5 % (22.0-35.0); MEAN CELL VOLUME 82.7 fl (80.0-105.0); MEAN CORPUSCULAR HEMOGLOBIN 26.7 pg (25.0-35.0); MEAN CORPUSCULAR HGB CONC 32.3 g/dl (31.0-37.0); MEAN PLATELET VOLUME 10.9 fl (7.0-11.0); MONO # 0.4 (0.1-0.6); MONO % 8.4 % (1.0-6.0); RBC 4.75 10^6/uL (3.5-6.1); RED CELL DISTRIBUTION WIDTH 13.9 % (11.5-14.5); WHITE BLOOD COUNT 4.4 10^3/ul (4.5-11.0)
[2017-08-17] MEDS: Budesonide 0.5 mg/2 ml Inhal Susp UD IH SCH ×2 (08:04→21:01)
--- NOTE | 2017-08-17 08:07 | CP.PCM.PN ---
Subjective - Date & Time of Evaluation Date of Evaluation: 08/17/17 Time of Evaluation: 07:45 - Subjective Subjective: Patient is doing better. She denies chest pain. Objective - Vital Signs/Intake and Output Vital Signs (last 24 hours): Temp Pulse Resp BP Pulse Ox 98.2 F 74 20 179/89 H 100 08/16/17 16:00 08/17/17 05:49 08/16/17 16:00 08/17/17 05:49 08/16/17 16:00 - Medications Medications: Current Medications Acetaminophen (Tylenol 325mg Tab) 650 mg PO Q4 PRN; Protocol PRN Reason: Fever >100.4 F Albuterol/Ipratropium (Duoneb 3 Mg/0.5 Mg (3 Ml) Ud) 3 ml IH [id number] [facility] PRN Reason: Protocol Last Admin: 08/17/17 03:15 Dose: 3 ml Aspirin (Ecotrin) 81 mg PO 0800 [facility] PRN Reason: Protocol Azithromycin (Zithromax) 500 mg PO DAILY [facility] PRN Reason: Protocol Stop: 08/21/17 10:01 Last Admin: 08/16/17 10:18 Dose: 500 mg Budesonide (Pulmicort Respules) 0.5 mg IH [id number] [facility] PRN Reason: Protocol Last Admin: 08/16/17 19:52 Dose: 0.5 mg Carvedilol (Coreg) 25 mg PO 0800,1800 [facility] PRN Reason: Protocol Last Admin: 08/17/17 05:49 Dose: 25 mg Clopidogrel Bisulfate (Plavix) 75 mg PO DAILY [facility] PRN Reason: Protocol Last Admin: 08/16/17 10:18 Dose: 75 mg Ceftriaxone Sodium (Rocephin 1 Gram Ivpb) 1 gm in 100 mls @ 100 mls/hr IVPB 0600 [facility] PRN Reason: Protocol Stop: 08/21/17 06:01 Last Admin: 08/17/17 05:09 Dose: 100 mls/hr Losartan Potassium (Cozaar) 50 mg PO DAILY [facility] PRN Reason: Protocol Last Admin: 08/16/17 10:18 Dose: 50 mg Methylprednisolone (Solu-Medrol) 30 mg IVP 0600,1800 [facility] PRN Reason: Protocol Last Admin: 08/17/17 05:10 Dose: 30 mg Pneumococcal Polyvalent Vaccine (Pneumovax 23 Vaccine) 0.5 ml IM .ONCE ONE PRN Reason: Protocol Stop: 08/22/17 10:01 Tiotropium Daniel (Spiriva) 18 mcg IH DAILY [facility] PRN Reason: Protocol Last Admin: 08/16/17 10:51 Dose: 18 mcg - Labs Labs: 08/17/17 06:30 - Constitutional Appears: No Acute Distress - Head Exam Head Exam: ATRAUMATIC, NORMOCEPHALIC - Respiratory Exam Respiratory Exam: Rhonchi, NORMAL BREATHING PATTERN - Cardiovascular Exam Cardiovascular Exam: +S1, +S2 - GI/Abdominal Exam GI & Abdominal Exam: Soft, Normal Bowel Sounds. absent: Tenderness - Extremities Exam Extremities Exam: Normal Inspection - Neurological Exam Neurological Exam: Alert, Oriented x3 Assessment and Plan - Assessment and Plan (Free Text) Assessment: Pneumonia COPD exacerbation Elevated troponin r/o NSTEMI HTN Elevated CPK/Rhabdomyolysis History of breast cancer Plan: Patient is improving. continue IV steroids, antibiotics and respiratory treatments via nebulizer. continue ASA, Plavix, Coreg and Losartan. Patient had one elevated troponin while on the medical floor. Cardiology is on the case. Once patient recovers from pneumonia , she will have a stress test. CPK trending downward. Awaiting today's result. Patient is currently off IV fluids. continue physical therapy for deconditioning.
[2017-08-17 08:20] LABS: ALB/GLOB RATIO 1.2 (1.1-1.8); ALBUMIN 3.3 g/dL (3.0-4.8); ALT/SGPT 47 U/L (7-56); AST/SGOT 35 U/L (14-36); BLOOD UREA NITROGEN 22 mg/dL (7-21); CALCIUM 8.7 mg/dL (8.4-10.5); GFR AFRICAN-AMERICAN > 60; GFR NON-AFRICAN AMERICAN > 60
[2017-08-17] MEDS: Tiotropium 18 mcg Cap For Inhalation IH SCH (09:00)
--- NOTE | 2017-08-17 12:21 | PN ---
DATE: 08/17/2017 PULMONARY NOTE SUBJECTIVE: The patient appears very comfortable this morning. She is not short of breath at rest. PHYSICAL EXAMINATION: VITAL SIGNS: Temperature is 98.2, pulse 74, respirations 18, blood pressure 179/89. Oxygen saturation on nasal cannula is 100%. HEENT: Normocephalic, atraumatic. No JVD. CARDIOVASCULAR: Positive S1, S2. No S3 gallop. LUNGS: Minimal/less rhonchi bilaterally. No wheezing. EXTREMITIES: Mild edema. No cyanosis, no clubbing. Calves are nontender to palpation. GI: Abdomen is soft, nontender, and nondistended. Bowel sounds are positive. SKIN: No acute rash. NEUROLOGIC: Limited at the present time. IMPRESSION: 1. Acute bronchitis. 2. Advanced chronic obstructive pulmonary disease. 3. Solitary pulmonary nodule - left upper lobe. 4. Non-ST elevation myocardial infarction. PLAN: The patient appears very comfortable this morning. She is not short of breath at rest. She does state to feeling much, much better overall. On physical exam, her bronchospasm continues to resolve. In addition, the oxygen saturation on nasal cannula is now 100%. I will continue the current nebulizer treatments and low-dose intravenous steroids for now. Inputs by Cardiology and Infectious Disease are noted. Clinical status of the patient is significantly improved - compared to the initial presentation. However, again, the patient's overall status/prognosis does remain guarded - as she does continue to have advanced lung disease. I will discuss the above with the attending physician. Canelo Gorman MD MT[facility]
--- NOTE | 2017-08-17 19:34 | PN ---
DATE: 08/17/2017 REASON FOR CONSULTATION AND FOLLOWUP: Shortness of breath, hypertension, possible respiratory tract infection, COPD exacerbation, now transferred to TCU for continued care. SUBJECTIVE: The patient denies any chest pain, shortness of breath, any palpitations. Feels better. OBJECTIVE: GENERAL: Not in apparent distress. VITAL SIGNS: As follows; temperature afebrile, heart rate 74, blood pressure 179/89. HEENT: PERRLA. Extraocular muscles intact. NECK: Supple. No carotid bruit or thyromegaly. CHEST: Clear to auscultation. HEART: S1 and S2 regular. ABDOMEN: Soft. EXTREMITIES: Clubbing and cyanosis negative. LABORATORY DATA: Blood workup as follows: WBC 4.4, hemoglobin 12.3, hematocrit 39.3, and platelet count 98. Chemistry shows sodium 134, potassium 3.9, chloride 97, carbon dioxide 30, anion gap of 12, BUN 22, and creatinine 0.9. IMPRESSION: A 77-year-old female was admitted to the medical floor with acute exacerbation of chronic obstructive pulmonary disease, pneumonia, respiratory tract infection, hypertension. The patient's first troponin was 0.06. Now repeat troponins have trended down. The patient remains asymptomatic. No cardiac symptoms complained of, though the patient's troponin is positive. RECOMMENDATION: Continue treatment for COPD, pneumonia, and deconditioning of the body. Once the patient is stable, we will consider stress test because of borderline to indeterminate range of troponin positive though the patient may be symptomatic. We will follow with you. Thank you for providing us the opportunity in taking care of the patient, Yue Martin. Elie Cruz MD
--- NOTE | 2017-08-18 00:54 | PN ---
DATE: 08/17/2017 SUBJECTIVE: Patient is in bed, in no acute distress, nontoxic. PHYSICAL EXAMINATION: VITAL SIGNS: Temperature is 97, blood pressure is 140/70, respiratory rate of 18, heart rate of 75. HEENT: Unremarkable. NECK: Supple. LUNGS: Have decreased breath sounds. HEART: Normal S1 and S2. ABDOMEN: Soft and nontender. LABORATORY EXAMINATION: Reveals a white count of 4.4, hemoglobin of 12, platelets of 98. Chemistries reveals a BUN of 22, creatinine of 0.6. Microbiology is noted. ASSESSMENT AND PLAN: A 77-year-old female with a history of hypertension, chronic obstructive lung disease, breast cancer, history of right mastectomy, who was admitted with a chronic obstructive lung disease, community-acquired pneumonia with elevated procalcitonin, now on ceftriaxone and Zithromax. Patient's CAT scan of the chest showed a calcified nodule and currently on p.o. Zithromax. Procalcitonin is elevated to 0.84, repeat one is down to 0.67, and on ceftriaxone and Zithromax, may complete with p.o. Zithromax alone upon discharge. Nikita Putnam MD
[2017-08-18] MEDS: MethylPREDNISolone 40 mg Vial IVP SCH ×2 (05:03→17:56)
[2017-08-18] MEDS: cefTRIAXone 1 gm 1 GM/100 ML BAG IVPB SCH (05:04)
[2017-08-18] MEDS: Albuterol-Ipratrop 3 mg / 0.5 (3 ml) UD IH SCH ×3 (08:00→20:15)
[2017-08-18] MEDS: Budesonide 0.5 mg/2 ml Inhal Susp UD IH SCH ×2 (08:00→20:15)
[2017-08-18] MEDS ORDERED: MethylPREDNISolone 40 mg Vial IVP SCH (10:00)
[2017-08-18] MEDS: Tiotropium 18 mcg Cap For Inhalation IH SCH (10:44)
--- NOTE | 2017-08-18 12:04 | PN ---
DATE: 08/18/2017 PULMONARY NOTE SUBJECTIVE: The patient appears very comfortable this morning. She is not short of breath at rest. PHYSICAL EXAMINATION: VITAL SIGNS: Temperature is 97.5, pulse 66, respirations 18, blood pressure 192/77. Oxygen saturation on nasal cannula is 98%. HEENT: Normocephalic, atraumatic. No JVD. CARDIOVASCULAR: Positive S1, S2. No S3 gallop. LUNGS: Very minimal/less rhonchi. No wheezing. EXTREMITIES: Mild edema. No cyanosis. No clubbing. Calves are nontender to palpation. GI: Abdomen is soft, nontender, nondistended. Bowel sounds are positive. SKIN: No acute rash. NEUROLOGIC: Limited at the present time. IMPRESSION: 1. Acute bronchitis. 2. Advanced chronic obstructive pulmonary disease. 3. Solitary pulmonary nodule - left upper lobe. 4. Non-ST elevation myocardial infarction. PLAN: The patient appears very comfortable this morning. She is not short of breath at rest. She does state to feeling much better overall. On physical exam, her bronchospasm continues to resolve. In addition, the alveolar-arterial gradient also continues to resolve. I will continue the current nebulizer treatments and try decreasing the intravenous steroids this morning. Inputs by Infectious Disease and Cardiology are noted. Clinical status of the patient is significantly improved overall. I will discuss the above with Dr. Fountain. Canelo Gorman MD MTDD
--- NOTE | 2017-08-18 12:39 | PN ---
DATE: SUBJECTIVE: The patient is in the Transitional Care Unit at [facility]. The patient was admitted for continued antibiotic treatment, treatment of chronic obstructive lung disease, pneumonia of the right lung. The patient was seen this morning. She is comfortable, sitting down in the bed and taking her respiratory treatment. PHYSICAL EXAMINATION: VITAL SIGNS: The patient's pulse is 56, blood pressure 192/77. The patient has a tendency to have elevated blood pressure while the patient is getting nebulizer treatment. O2 sat is 98% on 2 L of oxygen. LUNGS: Breath sounds are diminished bilaterally, but there is no evidence of any localizing signs now. HEART: Normal sinus rhythm. Sinus bradycardia. ABDOMEN: Soft. Liver and spleen are not palpable. CENTRAL NERVOUS SYSTEM: No focal deficits. The patient complains of pain in the chest on both sides; this is secondary to the coughing the patient had prior to admission. The patient is also treated for hypertension. She has a past history of right mastectomy. The patient's elevated CPK level was probably from muscle strain secondary to coughing. LABORATORY DATA: Lab work shows that the patient's white count is 4400, 79.1% granulocytes. The patient's chemistry, the BUN is 22, creatinine is 0.6. The patient's sugar is 131. She has been treated with Solu-Medrol and elevated sugar is secondary to the Solu-Medrol. The patient's overall prognosis is good. Condition is improving. We will follow up with current management, physical therapy rehabilitation, continued medication administration. Nikolai Fountain MD [facility]
--- NOTE | 2017-08-18 13:08 | PN ---
DATE: 08/18/2017 LOCATION: The patient is in room 318, bed 1. REASON FOR CONSULTATION AND FOLLOWUP: Shortness of breath, hypertension, COPD exacerbation, respiratory tract infection, and deconditioning. SUBJECTIVE: The patient on TCU for deconditioning, getting physical therapy and her cough and shortness of breath have continued to improved The patient denies chest pain or palpitation. Subjectively, the patient is lying flat in bed without any cardiac symptoms like palpitation or chest pain. Her breathing is getting better. PHYSICAL EXAMINATION: VITAL SIGNS: Blood pressure 192/77, yesterday blood pressure was 147/74, respirations 18, pulse 66, and temperature 97.5. HEENT: Head is normocephalic. Eyes; pupils normal. Conjunctivae normal. Nose and throat normal. NECK: JVP low. Carotids equal. THORAX: AP diameter normal. LUNGS: Few rales on the right base. CARDIOVASCULAR: S1 and S2. ABDOMEN: Soft. No tenderness. No organomegaly. Bowel sounds normal. EXTREMITIES: No clubbing. No cyanosis. LABORATORY DATA: WBC 4.4, hemoglobin 12.7, hematocrit 39.3, and platelets 98. Sodium 134, potassium 3.9, BUN 22, and creatinine 0.6. Random glucose 131, glucose again 130, and calcium 8.7. AST and ALT normal. Total protein and albumin normal. DIAGNOSES: Shortness of breath due to exacerbation of chronic obstructive pulmonary disease, pneumonia, respiratory tract infection, hypertension, first troponin 0.06 and second troponin went up to 0.13 then subsequent troponin was normal. PLAN: The patient's, out of four, one troponin was slightly elevated. The patient did not have any chest pain. The patient is symptomatic from COPD and respiratory tract infection. We will continue that once the patient improves then we will do the stress test to evaluate minimal elevation of troponin x1. In the meantime, the patient is on carvedilol 25 b.i.d., losartan 50 daily, aspirin daily, Plavix 75 daily, Solu-Medrol 20 mg IV b.i.d., and azithromycin 500 mg p.o. daily. The patient's blood pressure elevated, we will change losartan to 100 mg daily. We will follow with you. Elie Madison MD [facility] # [id number]
--- NOTE | 2017-08-18 17:35 | CP.PCM.PN ---
Subjective - Date & Time of Evaluation Date of Evaluation: 08/18/17 Time of Evaluation: 11:45 - Subjective Subjective: Comfortable in bed, no fevers. Objective - Vital Signs/Intake and Output Vital Signs (last 24 hours): Temp Pulse Resp BP Pulse Ox 97.5 F L 66 18 192/77 H 98 08/17/17 17:49 08/18/17 05:46 08/17/17 17:49 08/18/17 05:46 08/17/17 17:49 - Medications Medications: Current Medications Acetaminophen (Tylenol 325mg Tab) 650 mg PO Q4 PRN; Protocol PRN Reason: Fever >100.4 F Albuterol/Ipratropium (Duoneb 3 Mg/0.5 Mg (3 Ml) Ud) 3 ml IH [id number] LESTER PRN Reason: Protocol Last Admin: 08/18/17 08:00 Dose: 3 ml Aspirin (Ecotrin) 81 mg PO 0800 [facility] PRN Reason: Protocol Last Admin: 08/18/17 08:46 Dose: 81 mg Azithromycin (Zithromax) 500 mg PO DAILY [facility] PRN Reason: Protocol Stop: 08/21/17 10:01 Last Admin: 08/17/17 09:01 Dose: 500 mg Budesonide (Pulmicort Respules) 0.5 mg IH [id number] LESTER PRN Reason: Protocol Last Admin: 08/18/17 08:00 Dose: 0.5 mg Carvedilol (Coreg) 25 mg PO 0800,1800 [facility] PRN Reason: Protocol Last Admin: 08/18/17 05:46 Dose: 25 mg Clopidogrel Bisulfate (Plavix) 75 mg PO DAILY [facility] PRN Reason: Protocol Last Admin: 08/17/17 09:00 Dose: 75 mg Ceftriaxone Sodium (Rocephin 1 Gram Ivpb) 1 gm in 100 mls @ 100 mls/hr IVPB 0600 [facility] PRN Reason: Protocol Stop: 08/21/17 06:01 Last Admin: 08/18/17 05:04 Dose: 100 mls/hr Losartan Potassium (Cozaar) 100 mg PO DAILY [facility] Methylprednisolone (Solu-Medrol) 20 mg IVP 0600,1800 [facility] Pneumococcal Polyvalent Vaccine (Pneumovax 23 Vaccine) 0.5 ml IM .ONCE ONE PRN Reason: Protocol Stop: 01/23/18 10:01 Tiotropium [place] (Spiriva) 18 mcg IH DAILY [facility] PRN Reason: Protocol Last Admin: 08/17/17 09:00 Dose: 18 mcg - Labs Labs: 08/17/17 06:30 08/17/17 06:30 - Constitutional Appears: Non-toxic - Head Exam Head Exam: NORMAL INSPECTION - ENT Exam ENT Exam: Mucous Membranes Moist - Neck Exam Neck Exam: absent: Meningismus - Respiratory Exam Respiratory Exam: Decreased Breath Sounds - Cardiovascular Exam Cardiovascular Exam: +S1, +S2 - GI/Abdominal Exam GI & Abdominal Exam: Soft. absent: Tenderness Assessment and Plan - Assessment and Plan (Free Text) Plan: Assessment Community-acquired pneumonia HTN COPD breast cancer S/P right mastectomy Plan Continue Rocephin and Zithromax (day 3) - complete 5-7 days of therapy PCT is trending downwards will continue to monitor clinically
[2017-08-19] MEDS: Albuterol-Ipratrop 3 mg / 0.5 (3 ml) UD IH SCH ×4 (04:25→20:20)
[2017-08-19] MEDS: MethylPREDNISolone 40 mg Vial IVP SCH (05:29)
[2017-08-19] MEDS: cefTRIAXone 1 gm 1 GM/100 ML BAG IVPB SCH (05:29)
[2017-08-19] MEDS: Budesonide 0.5 mg/2 ml Inhal Susp UD IH SCH ×2 (07:42→20:20)
--- NOTE | 2017-08-19 09:20 | PN ---
DATE: SUBJECTIVE: The patient is in the Transitional Care Unit. She was admitted with pneumonia, exacerbation of chronic obstructive lung disease, and the patient is continuing treatment for the infection as well as the patient is getting physical therapy. She was deconditioned. PHYSICAL EXAMINATION: VITAL SIGNS: This morning, the pulse is 70, blood pressure /85, respirations 18 per minute. HEENT: The patient's head is normocephalic. NECK: Thyroid is not enlarged. JVP is flat. Carotid pulses are present. HEART: Normal sinus rhythm. S1 and S2 present. No murmur. ABDOMEN: Soft. Liver and spleen not palpable. No tenderness. [employer] CHEMIST: No focal neurologic deficit. LUNGS: Breath sounds are diminished bilaterally. MEDICATIONS: Consists of Coreg 25 mg b.i.d. The patient is on losartan 100 mg daily. The patient is on DuoNeb inhalation therapy, aspirin 81 mg daily, Plavix 75 mg daily. The patient has got Pulmicort and ceftriaxone, which is Rocephin 1 g q. 24 hours. The patient is also on prednisone 20 mg, Solu-Medrol 20 mg IV. We will change it to oral medication. She is on Zithromax 500 mg daily as well. PLAN: We will continue current management, followup. The patient gets physical therapy rehabilitation also and her condition is improving. Nikolai Fountain MD
[2017-08-19] MEDS: Tiotropium 18 mcg Cap For Inhalation IH SCH (10:00)
--- NOTE | 2017-08-19 13:17 | PN ---
DATE: 08/19/2017 PULMONARY PROGRESS NOTE SUBJECTIVE: The patient is resting comfortably in no acute respiratory distress. When moving around, she does get somewhat dyspneic. She indeed has chronic obstructive pulmonary disease and requires vigorous treatment. I have received information regarding her care from Dr. Gorman. IV corticosteroids need to be slowly decreased and changed to oral. She should continue inhale corticosteroids as well. The patient is feeling better and these changes can be made slowly. PHYSICAL EXAMINATION GENERAL: She is resting comfortably. VITAL SIGNS: She is afebrile. Respiratory rate is 16, blood pressure is 180/70, and O2 saturation on nasal cannula is 98%. HEENT: Normocephalic and atraumatic. No JVD and no lymphadenopathy. CARDIOVASCULAR: Regular rhythm S1 and S2, without murmur, gallop or rub. LUNGS: Breath sounds distant. No rales or wheezes. There is some rhonchi noted scattered throughout. ABDOMEN: Soft. Bowel sounds are normoactive without mass, guarding, rebound, or organomegaly. EXTREMITIES: Reveal no clubbing, cyanosis, or edema. There is no Homans' sign. SKIN: No rash or excoriation. LYMPHATIC: Lymphadenopathy not present in the supraclavicular notch or in the cervical, inguinal, or axillary areas. NEUROLOGIC: No focal findings. CLINICAL IMPRESSION: 1. Status post bronchitis (acute). 2. Advanced chronic obstructive pulmonary disease. 3. Solitary pulmonary nodule left upper lobe requires further evaluation in the future. 4. Non-ST elevation myocardial infarction. PLAN: Continue to decrease the corticosteroids and prepare the patient for discharge. She will need follow up as an outpatient regarding COPD and nodule. We will follow closely with you. Albaro Robles MD MTDD
--- NOTE | 2017-08-20 01:17 | PN ---
DATE: 08/19/2017 SUBJECTIVE: The patient is in bed, in no acute distress, nontoxic. PHYSICAL EXAMINATION: VITAL SIGNS: Temperature is 97, blood pressure is 150/80, respiratory rate of 18. HEENT: Unremarkable. NECK: Supple. LUNGS: Have decreased breath sounds. HEART: Normal S1 and S2. ABDOMEN: Soft. LABORATORY EXAMINATION: Reveals a white count of 4.4, hemoglobin of 12, platelets of 98. Chemistries reveals a BUN of 22, creatinine of 0.6. ASSESSMENT AND PLAN: A 77-year-old female with community-acquired pneumonia, hypertension, chronic obstructive lung disease, breast cancer, status post mastectomy, day #4 of ceftriaxone and Zithromax with complete five to seven days of therapy. Review of orders reveals the patient is on prednisone, ceftriaxone and Zithromax. We will follow closely with you. The patient did have procalcitonin in the acute care, which was 0.67 on the 16th, initially was 2.84. We will follow with you. Nikita Putnam MD
[2017-08-20] MEDS: Albuterol-Ipratrop 3 mg / 0.5 (3 ml) UD IH SCH ×4 (03:00→20:40)
[2017-08-20] MEDS: cefTRIAXone 1 gm 1 GM/100 ML BAG IVPB SCH (05:20)
[2017-08-20 06:55] VITALS: RESP 20
[2017-08-20 06:59] LABS: EOS % 0.3 % (1.5-5.0); GRAN # 4.52 (1.4-6.5); GRAN % 64.1 % (50.0-68.0); HEMOGLOBIN 12.6 g/dL (12.0-16.0); LYMPH # 1.6 (1.2-3.4); LYMPH % 22.1 % (22.0-35.0); MEAN CELL VOLUME 83.7 fl (80.0-105.0); MEAN CORPUSCULAR HGB CONC 31.1 g/dl (31.0-37.0); MEAN PLATELET VOLUME 10.3 fl (7.0-11.0); MONO % 13.5 % (1.0-6.0); RBC 4.84 10^6/uL (3.5-6.1); WHITE BLOOD COUNT 7.1 10^3/ul (4.5-11.0)
[2017-08-20 07:21] LABS: ALB/GLOB RATIO 1.1 (1.1-1.8); ALBUMIN 3.1 g/dL (3.0-4.8); ALT/SGPT 37 U/L (7-56); AST/SGOT 26 U/L (14-36); BLOOD UREA NITROGEN 22 mg/dL (7-21); CALCIUM 8.6 mg/dL (8.4-10.5); GFR AFRICAN-AMERICAN > 60; GFR NON-AFRICAN AMERICAN > 60
[2017-08-20] MEDS: Budesonide 0.5 mg/2 ml Inhal Susp UD IH SCH ×2 (07:31→20:40)
--- NOTE | 2017-08-20 10:41 | PN ---
DATE: SUBJECTIVE: The patient is in [facility] Transitional Care Unit. She was seen this morning. She was complaining of heavy head. Her blood pressure fluctuates. Her breathing is much improved and her cough is subsiding more or less. PHYSICAL EXAMINATION VITAL SIGNS: The pulse is 66, blood pressure is 174/76, respirations are 20, and O2 saturations are 94% on room air. LUNGS: Clinically clear. Breath sounds are diminished bilaterally. HEART: Normal sinus rhythm. Bradycardia. ABDOMEN: Soft. Liver and spleen are not palpable. CENTRAL NERVOUS SYSTEM: No focal deficits. Cranial nerves are intact. The patient is able to move all four limbs. The patient's blood pressure will be controlled with extra medications as needed and also the patient will be given Xanax 0.25 mg b.i.d. to control anxiety state at this time. MEDICATIONS: The patient's list of medications consists of Coreg 25 mg b.i.d. The patient is on Losartan 100 mg daily, DuoNeb respiratory treatment, aspirin 81 mg daily, and Plavix 75 mg daily. The patient is on prednisone 10 mg p.o. from today. The patient will get budesonide 0.5 mg respiratory treatment p.r.n. The patient's condition is improving. We will follow up. Nikolai Fountain MD
[2017-08-20] MEDS: Tiotropium 18 mcg Cap For Inhalation IH SCH (10:56)
[2017-08-20 18:17] VITALS: TEMP 98.5; O2SAT 96
[2017-08-21] MEDS: Albuterol-Ipratrop 3 mg / 0.5 (3 ml) UD IH SCH ×4 (02:29→20:24)
[2017-08-21] MEDS: cefTRIAXone 1 gm 1 GM/100 ML BAG IVPB SCH (05:29)
--- NOTE | 2017-08-21 05:32 | PN ---
DATE: 08/20/2017 SUBJECTIVE: The patient is seen early this morning in room 318. The patient is doing well. No fever or chills. PHYSICAL EXAMINATION VITAL SIGNS: On exam; temperature is 98, blood pressure is 120/70 and respiratory rate of 16. HEENT: Unremarkable. NECK: Supple. LUNGS: Have decreased breath sounds. HEART: Normal S1 and S2. ABDOMEN: Soft and nontender. LABORATORY DATA: Reviewed. ASSESSMENT AND PLAN: This is a 77-year-old female with community-acquired pneumonia, hypertension, chronic obstructive lung disease, breast cancer, day #5 of ceftriaxone and Zithromax, would complete 5 to 7 days. We will follow closely with you. Nikita Putnam MD
[2017-08-21] MEDS: Budesonide 0.5 mg/2 ml Inhal Susp UD IH SCH ×2 (07:34→20:24)
--- NOTE | 2017-08-21 11:05 | PN ---
DATE: 08/21/2017 PULMONARY PROGRESS NOTE SUBJECTIVE: The patient appears very comfortable this morning. She is not short of breath at rest. PHYSICAL EXAMINATION: VITAL SIGNS: (Last noted in the computer): Temperature is 98.5, pulse is 57, respirations are 18/20, and blood pressure is 98/59. Oxygen saturation on nasal cannula is 96%. HEENT: Normocephalic and atraumatic. NECK: No JVD. CARDIOVASCULAR: Positive S1 and S2. No S3 gallop. LUNGS: Clear bilaterally. EXTREMITIES: Mild edema. No cyanosis and no clubbing. Calves are nontender to palpation. GASTROINTESTINAL: Abdomen is soft, nontender and nondistended. Bowel sounds are positive. SKIN: No acute rash. NEUROLOGIC: Exam is limited at the present time. IMPRESSION 1. Acute bronchitis. 2. Advanced chronic obstructive pulmonary disease. 3. Solitary pulmonary nodule - left upper lobe. 4. Non-ST elevation myocardial infarction. PLAN: The patient appears very comfortable this morning. She is not short of breath at rest. She does state to feeling much, much better overall. On physical exam, her lungs are now clear. Oxygen saturation on nasal cannula is 96%. I will continue the current nebulizer treatments and low-dose oral steroids (decreased over the weekend) for now. The patient remains on antibiotic therapy. There are no temperatures noted. There is no leukocytosis. Clinical status of the patient is significantly improved overall. She is for probable discharge tomorrow morning. If/when discharged, the patient does know to follow up with me in the office - concerning her pulmonary nodule. At this point in time, there is no additional pulmonary intervention needed or warranted. Again, the patient is for probable discharge tomorrow morning. Hopefully, she will follow up with me in the office. I will discuss the above with the attending physician. Thank you very much for allowing me to participate in the care of this patient. Canelo Gorman MD [facility]
--- NOTE | 2017-08-21 12:51 | PN ---
DATE: LOCATION: The patient is in the [facility] in [place] in Transition Care Unit. SUBJECTIVE: The patient was admitted for treatment. She presented with pneumonia, exacerbation of chronic obstructive lung disease, and hypertension. The patient is seen this morning. She is relatively comfortable. She had evidence of abnormal troponin and Cardiology is planning to do cardiac stress test on the patient today. PHYSICAL EXAMINATION: VITAL SIGNS: The pulse is 60, blood pressure . LUNGS: Clear. HEART: Normal sinus rhythm. Sinus bradycardia. ABDOMEN: Soft. Liver and spleen are not palpable. CENTRAL NERVOUS SYSTEM: No focal deficits. The patient has history of past mastectomy on right side of the breast. Right breast was removed. The patient has had history of smoking and chronic obstructive lung disease secondary to that. MEDICATIONS: Consists of aspirin, Coreg, losartan, DuoNeb, Plavix, and prednisone. The patient is on low dose of prednisone 10 mg at this time. The patient is on budesonide 0.5 mg inhalation therapy with DuoNeb. The patient's condition is improved. The patient is scheduled as mentioned for a stress test today by Dr. Cruz and will follow up. Nikolai Fountain MD
--- NOTE | 2017-08-21 15:37 | PN ---
DATE: 08/21/2017 The patient is in room 318, bed 1. REASON FOR CONSULTATION: Followup shortness of breath, hypertension, COPD exacerbation, respiratory tract infection, deconditioning, one of the troponin very minimally elevated. SUBJECTIVE: The patient is lying comfortably without chest pain, shortness of breath, palpitations. She says cough has also improved and shortness of breath has also improved. The patient denies any anginal symptoms. PHYSICAL EXAMINATION VITAL SIGNS: Blood pressure 98/59, respirations 20, pulse 57, temperature 98.5. HEENT: Head is normocephalic. Eyes: Pupils normal. Conjunctivae normal. NECK: JVP low. Carotids equal. THORAX: AP diameter normal. LUNGS: No significant rales. CARDIOVASCULAR: S1 and S2. ABDOMEN: Soft, nontender. No organomegaly. Bowel sounds normal. EXTREMITIES: No clubbing. No cyanosis. LABORATORY DATA: WBC 7.1, hemoglobin 12.6, hematocrit 40.5, platelets 160,000. Sodium 137, potassium 3.8, BUN 22, creatinine 0.6, random glucose 81, calcium is 8.6, AST 26, ALT 37, total protein 5.8, albumin is 3.1. DIAGNOSES: Shortness of breath, exacerbation of chronic obstructive pulmonary disease, pneumonia, respiratory tract infection, hypertension, out of 4 troponin 1 troponin was 0.13, which is minimal elevation. PLAN: We will do IV Lexiscan stress test today to evaluate for coronary artery disease. In the meantime, the patient on Cozaar 100 mg daily, carvedilol 25 b.i.d., aspirin 81 daily, Plavix 75 daily, prednisone 10 mg b.i.d. We will do the stress test today and will follow with her. Elie Madison MD
[2017-08-21] MEDS: Tiotropium 18 mcg Cap For Inhalation IH SCH (17:04)
--- NOTE | 2017-08-21 19:05 | CP.PCM.PN ---
Subjective - Date & Time of Evaluation Date of Evaluation: 08/21/17 Time of Evaluation: 11:55 - Subjective Subjective: Comfortable in bed, no fevers, not in distress. Objective - Vital Signs/Intake and Output Vital Signs (last 24 hours): Temp Pulse Resp BP Pulse Ox 98.5 F 57 L 20 98/59 L 96 08/20/17 18:17 08/20/17 18:42 08/20/17 18:17 08/20/17 18:42 08/20/17 18:17 - Medications Medications: Current Medications Acetaminophen (Tylenol 325mg Tab) 650 mg PO Q4 PRN; Protocol PRN Reason: Fever >100.4 F Last Admin: 08/20/17 05:24 Dose: 650 mg Albuterol/Ipratropium (Duoneb 3 Mg/0.5 Mg (3 Ml) Ud) 3 ml IH [id number] LESTER PRN Reason: Protocol Last Admin: 08/21/17 07:34 Dose: 3 ml Alprazolam (Xanax) 0.25 mg PO BID LESTER PRN Reason: Protocol Stop: 08/27/17 08:17 Last Admin: 08/21/17 08:12 Dose: 0.25 mg Aspirin (Ecotrin) 81 mg PO 0800 LESTER PRN Reason: Protocol Last Admin: 08/20/17 08:08 Dose: 81 mg Azithromycin (Zithromax) 500 mg PO DAILY LESTER PRN Reason: Protocol Stop: 08/21/17 10:01 Last Admin: 08/20/17 10:56 Dose: 500 mg Budesonide (Pulmicort Respules) 0.5 mg IH [id number] LESTER PRN Reason: Protocol Last Admin: 08/21/17 07:34 Dose: 0.5 mg Carvedilol (Coreg) 25 mg PO 0800,1800 LESTER PRN Reason: Protocol Last Admin: 08/20/17 18:42 Dose: Not Given Clopidogrel Bisulfate (Plavix) 75 mg PO DAILY LESTER PRN Reason: Protocol Last Admin: 08/20/17 10:56 Dose: 75 mg Losartan Potassium (Cozaar) 100 mg PO DAILY [facility] Last Admin: 08/20/17 10:49 Dose: Not Given Pneumococcal Polyvalent Vaccine (Pneumovax 23 Vaccine) 0.5 ml IM .ONCE ONE PRN Reason: Protocol Stop: 08/22/17 10:01 Prednisone (Prednisone Tab) 10 mg PO 0600,1800 LESTER Last Admin: 08/21/17 05:30 Dose: 10 mg Tiotropium [place] (Spiriva) 18 mcg IH DAILY [facility] PRN Reason: Protocol Last Admin: 08/20/17 10:56 Dose: 18 mcg - Labs Labs: 08/20/17 06:30 08/20/17 06:30 - Constitutional Appears: Non-toxic - Head Exam Head Exam: NORMAL INSPECTION - ENT Exam ENT Exam: Mucous Membranes Moist - Neck Exam Neck Exam: absent: Meningismus - Respiratory Exam Respiratory Exam: Decreased Breath Sounds - Cardiovascular Exam Cardiovascular Exam: +S1, +S2 - GI/Abdominal Exam GI & Abdominal Exam: Soft. absent: Tenderness Assessment and Plan - Assessment and Plan (Free Text) Plan: Assessment Community-acquired pneumonia HTN COPD breast cancer S/P right mastectomy Plan Completed 5 days of Rocephin and Zithromax - will d/c and monitor off antibiotics PCT is trending downwards will continue to monitor clinically
[2017-08-22] MEDS: Albuterol-Ipratrop 3 mg / 0.5 (3 ml) UD IH SCH (03:40)
--- NOTE | 2017-08-22 08:41 | PN ---
DATE: SUBJECTIVE: This patient is in the Transitional Care Unit. She is discharged today. The patient is seen this morning. She is comfortable. PHYSICAL EXAMINATION: VITAL SIGNS: The pulse is 66, blood pressure is 130/80, and the patient's respirations are 16 per minute. The patient had a cardiac stress test yesterday and the test results were satisfactory. LUNGS: Clear. Breath sounds are diminished bilaterally. HEART: Normal sinus rhythm. ABDOMEN: Soft. Liver and spleen are not palpable. 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 The patient will be discharged on medication that she will goes on try to being admitted in the hospital. She was on Symbicort 4.5/160 twice a day and Spiriva one inhalation daily. The patient was on Ventolin puff metered dose inhaler q.6 hours. The patient is on losartan 50 mg daily. The patient is on 10 mg daily. on a 2 g sodium diet. The patient is to continue all medications that were and follow up in 1 week in the office. Her overall prognosis is good. Condition and discharge is stable. Nikolai Fountain MD
[2017-08-22] MEDS: Tiotropium 18 mcg Cap For Inhalation IH SCH (10:00)
[2017-08-22] MEDS ORDERED: Pneumococcal 23-Valent Vaccine IM ONE (10:00)
[2017-08-22 10:09] VITALS: BP 151/72; PULSE 74
--- NOTE | 2017-08-22 13:43 | PN ---
DATE: 08/22/2017 LOCATION: The patient is in room 318, bed 1. REASON FOR CONSULTATION: Followup shortness of breath, hypertension, COPD exacerbation, respiratory tract infection, deconditioning on medical floor, one of the troponin was minimally elevated. SUBJECTIVE: The patient denies any chest pain or palpitation. Her breathing is better. Cough has improved. PHYSICAL EXAMINATION: VITAL SIGNS: Blood pressure 151/72, pulse 74, the patient is afebrile, respirations 20. HEENT: Head is normocephalic. Eyes; pupils normal. Conjunctivae normal. Nose and throat normal. NECK: JVP low, carotids equal. THORAX: AP diameter normal. LUNGS: No significant rales. CARDIOVASCULAR: S1 and S2. ABDOMEN: Soft. No tenderness. No organomegaly. EXTREMITIES: No clubbing. No cyanosis. LABORATORY DATA: WBC 7.1, hemoglobin 12.6, hematocrit 40.5, platelet 160. Sodium 137, potassium 3.8, BUN 22, creatinine 0.6, calcium 8.6, AST and ALT normal. Total protein and albumin normal. DIAGNOSES: Shortness of breath, exacerbation of chronic obstructive pulmonary disease, pneumonia, respiratory tract infection, hypertension, out of 4 troponin 1 troponin was 0.13, which is minimally elevated to evaluate that the patient has Lexiscan stress test yesterday, which is reported as normal with left ventricular ejection fraction normal 75%. PLAN: As mentioned above, stress test negative with normal LV ejection fraction 75%. The patient is on carvedilol 25 b.i.d., losartan 100 daily, aspirin 81 daily, Plavix 75 daily, Spiriva 18 mcg daily. We will continue physical therapy. Elie Madison MD
--- NOTE | 2017-08-23 00:36 | PN ---
DATE: 08/22/2017 SUBJECTIVE: The patient is in bed, in no acute distress, nontoxic. PHYSICAL EXAMINATION: VITAL SIGNS: Temperature is 98, blood pressure is 150/70, and respiratory rate of 16. HEENT: Unremarkable. NECK: Supple. LUNGS: Have decreased breath sounds HEART: Normal S1 and S2. ABDOMEN: Soft. LABORATORY DATA: Reveals a white count of 7.1. Chemistries are noted. ASSESSMENT AND PLAN: He is a 77-year-old female who is seen earlier this morning in room 318 with community acquired pneumonia, hypertension, chronic obstructive pulmonary disease, had completed six days of Rocephin and Zithromax, off antibiotics, patient for discharge. Nikita Putnam MD
== END 2017-08-22 11:41 | disposition home health service (06) | DRG 190 ==
LOC: TRCU 19:39
PROVIDERS: ADMIT Internal Medicine; ATTEND Internal Medicine
PROC: 3E03329 Introduction of Other Anti-infective into Peripheral Vein, Percutaneous Approach (ICD-10-PCS; 2017-08-15)
PROC: F07Z9ZZ Gait Training/Functional Ambulation Treatment (ICD-10-PCS; principal; 2017-08-17)
PROC: F07Z8ZZ Transfer Training Treatment (ICD-10-PCS; 2017-08-17)
PROC: F07L6GZ Therapeutic Exercise Treatment of Musculoskeletal System - Lower Back / Lower Extremity using Aerobic Endurance and Conditioning Equipment (ICD-10-PCS; 2017-08-17)
PROC: F08Z2ZZ Grooming/Personal Hygiene Treatment (ICD-10-PCS; 2017-08-19)
DX: J44.1 Chronic obstructive pulmonary disease with (acute) exacerbation (principal); J18.9 Pneumonia, unspecified organism; M62.82 Rhabdomyolysis; Z79.2 Long term (current) use of antibiotics; I11.0 Hypertensive heart disease with heart failure; I50.9 Heart failure, unspecified; J20.9 Acute bronchitis, unspecified; J44.0 Chronic obstructive pulmonary disease with (acute) lower respiratory infection; M19.90 Unspecified osteoarthritis, unspecified site; R91.1 Solitary pulmonary nodule; Z85.3 Personal history of malignant neoplasm of breast; Z87.891 Personal history of nicotine dependence; Z90.11 Acquired absence of right breast and nipple

== ENCOUNTER 2018-09-04 09:54 | Emergency (ER) | payer MEDICARE, OTHER ==
[2018-09-04 09:55] VITALS: BMI 22.6
[2018-09-04 10:28] VITALS: RESP 18
--- NOTE | 2018-09-04 10:56 | RAD ---
Date of service: 09/04/2018 HISTORY: SOB COMPARISON: 08/12/2017 FINDINGS: LUNGS: No active pulmonary disease. PLEURA: No significant pleural effusion identified, no pneumothorax apparent. CARDIOVASCULAR: No aortic atherosclerotic calcification present. Normal cardiac size. No pulmonary vascular congestion. OSSEOUS STRUCTURES: No significant abnormalities. VISUALIZED UPPER ABDOMEN: Normal. OTHER FINDINGS: Surgical clips in right axilla. Absent right breast. IMPRESSION: No active disease.
--- NOTE | 2018-09-04 12:12 | ED PDOC ---
Arrival/HPI - General Chief Complaint: Shortness Of Breath Time Seen by Provider: 09/04/18 10:27 Historian: Patient - History of Present Illness Narrative History of Present Illness (Text): 09/04/18 12:08 78yo female with pmhx of hypertension and COPD who was referred to ED by her PMD to r/o possible pneumonia. Patient reports generalized weakness, chills and SOB. states she took 10days course of antibiotics for these symptoms without relieve. Denies cough. states she had pneumonia last year and thinks it might be similar thing. Denies chest pain, abdominal pain, urinary symptoms, sick contact, travel, any other complaint. Past Medical History - Provider Review Nursing Documentation Reviewed: Yes - Infectious Disease Hx of Infectious Diseases: None - Cardiac Hx Hypertension: Yes - Pulmonary Hx Chronic Obstructive Pulmonary Disease (COPD): Yes - Neurological Hx Neurological Disorder: No - HEENT Hx HEENT Disorder: No - Renal Hx Renal Disorder: No - Endocrine/Metabolic Hx Endocrine Disorders: No - Hematological/Oncological Hx Cancer: Yes - Integumentary Hx Dermatological Disorder: No - Musculoskeletal/Rheumatological Hx Falls: No - Gastrointestinal Hx Gastrointestinal Disorders: No - Genitourinary/Gynecological Hx Genitourinary Disorders: No Hx Reproductive Disorders: No - Psychiatric Hx Psychophysiologic Disorder: No Hx Substance Use: No - Surgical History Hx Mastectomy: Yes - Anesthesia Hx Anesthesia: Yes Hx Anesthesia Reactions: No Hx Malignant Hyperthermia: No Family/Social History - Physician Review Nursing Documentation Reviewed: Yes Family/Social History: Unknown Family HX Smoking Status: Former Smoker Hx Alcohol Use: No Hx Substance Use: No Allergies/Home Meds Allergies/Adverse Reactions: Allergies No Known Allergies Allergy (Verified 08/12/17 17:55) Home Medications: Home Meds Medication Instructions Recorded Confirmed RX: Bisoprolol [Zebeta] 10 mg PO DAILY 08/12/17 08/21/17 RX: Budesonide/Formoterol Fumarate 1 puff IH BID 08/12/17 08/21/17 [Symbicort 160-4.5 Mcg Inhaler] RX: Losartan [Cozaar] 50 mg PO DAILY 08/12/17 08/21/17 RX: Tiotropium Pray Inhaler 1 puff IH DAILY 08/12/17 08/21/17 [Spiriva Inhalation Handihaler Device] RX: ALPRAZolam [Xanax] 0.25 mg PO Q6 PRN 08/21/17 08/21/17 Review of Systems - Physician Review All systems were reviewed & negative as marked: Yes - Review of Systems Constitutional: Fatigue Eyes: Normal ENT: Normal Respiratory: Normal Cardiovascular: Normal Gastrointestinal: Normal Genitourinary Female: Normal Musculoskeletal: Normal Skin: Normal Neurological: Normal Endocrine: Normal Hemo/Lymphatic: Normal Psychiatric: Normal Physical Exam Vital Signs Reviewed: Yes Vital Signs Temp Pulse Resp BP Pulse Ox 09/04/18 09:55 98.3 F 86 18 136/78 93 L Temperature: Afebrile Blood Pressure: Normal Pulse: Regular Respiratory Rate: Normal Appearance: Positive for: Well-Appearing, Non-Toxic, Comfortable Pain Distress: None Mental Status: Positive for: Alert and Oriented X 3 - Systems Exam Head: Present: Atraumatic, Normocephalic Pupils: Present: PERRL Extroacular Muscles: Present: EOMI Conjunctiva: Present: Normal Mouth: Present: Moist Mucous Membranes Neck: Present: Normal Range of Motion Respiratory/Chest: Present: Clear to Auscultation, Good Air Exchange. No: Respiratory Distress, Accessory Muscle Use, Wheezes, Decreased Breath Sounds, Rales, Retracting, Rhonchi Cardiovascular: Present: Regular Rate and Rhythm, Normal S1, S2. No: Murmurs Abdomen: No: Tenderness, Distention, Peritoneal Signs Back: Present: Normal Inspection Upper Extremity: Present: Normal Inspection. No: Cyanosis, Edema Lower Extremity: Present: Normal Inspection. No: Edema Neurological: Present: GCS=15, CN II-XII Intact, Speech Normal Skin: Present: Warm, Dry, Normal Color. No: Rashes Psychiatric: Present: Alert, Oriented x 3, Normal Insight, Normal Concentration Medical Decision Making ED Course and Treatment: 09/05/18 19:46 78yo female who presented to ED for stated history. she was not in any distress in ED chest xray NAD Lab was reviewed, unremarkable except hypokalemia and she was repleted. EKG NSR @ 78bpm. Case was DW Dr. Fountain and he recommended that pt be DC home to f/u with him in the office Result and plan was DW the pt and she was DC home. She verbalized understanding. - RAD Interpretation Radiology Orders: 09/04/18 10:32 CHEST PORTABLE [RAD] Stat Disposition/Present on Arrival - Present on Arrival Any Indicators Present on Arrival: No History of DVT/PE: No History of Uncontrolled Diabetes: No Urinary Catheter: No History of Decub. Ulcer: No History Surgical Site Infection Following: None - Disposition Have Diagnosis and Disposition been Completed?: Yes Diagnosis: Malaise Disposition: HOME/ ROUTINE Disposition Time: 13:10 Patient Plan: Discharge Condition: STABLE Discharge Instructions (ExitCare): Fatigue (DC) Additional Instructions: Follow up with your doctor Drink plenty of fluid and rest Return to ED for any new or worsening symptoms Referrals: Paula Fountain MD [Primary Care Provider] - Follow up with primary Forms: [employer] ([place]ian)
[2018-09-04 12:17] LABS: BASO # 0.01 K/mm3 (0.0-2.0); BASO % 0.2 % (0.0-3.0); EOS # 0.2 (0.0-0.7); EOS % 3.2 % (1.5-5.0); HEMOGLOBIN 12.5 g/dL (12.0-16.0); LYMPH # 0.6 (1.2-3.4); LYMPH % 12.5 % (22.0-35.0); MEAN CELL VOLUME 80.3 fl (80.0-105.0); MEAN CORPUSCULAR HEMOGLOBIN 25.7 pg (25.0-35.0); MEAN PLATELET VOLUME 10.6 fl (7.0-11.0); MONO # 0.5 (0.1-0.6); MONO % 9.9 % (1.0-6.0); RBC 4.87 10^6/uL (3.5-6.1); RED CELL DISTRIBUTION WIDTH 13.9 % (11.5-14.5); WHITE BLOOD COUNT 4.6 10^3/uL (4.5-11.0)
[2018-09-04 12:27] LABS: ALB/GLOB RATIO 1.2 (1.1-1.8); ALT/SGPT 11 U/L (7-56); AST/SGOT 22 U/L (14-36); BLOOD UREA NITROGEN 12 mg/dL (7-21); CALCIUM 9.2 mg/dL (8.4-10.5); GFR NON-AFRICAN AMERICAN > 60
[2018-09-04] MEDS ORDERED: Potassium Chloride 20 mEq ER Tab PO STA (12:29)
[2018-09-04 12:38] LABS: TROPONIN I 0.01 ng/mL
[2018-09-04 12:41] LABS: INR 1.31; PARTIAL THROMBOPLASTIN TIME 29.6 Seconds (26.9-38.3); PROTHROMBIN TIME 14.8 SECONDS (9.4-12.5)
[2018-09-04 14:36] VITALS: BP 163/89; PULSE 62; TEMP 98; O2SAT 97
--- NOTE | 2018-09-04 22:54 | CARD ---
APPROVED REPORT Date of service: 09/04/2018 EKG Measurement Heart [id number] <Conclusion> Normal sinus rhythm Nonspecific T wave abnormality Abnormal ECG
== END 2018-09-04 14:31 | disposition home or self-care (01) ==
LOC: ED 09:54
DX: R53.81 Other malaise (principal); I10 Essential (primary) hypertension; J44.9 Chronic obstructive pulmonary disease, unspecified; Z87.891 Personal history of nicotine dependence